=== PATIENT | male | born 1955 | race Caucasian/White ===

== ENCOUNTER 2016-07-10 12:56 | Inpatient (IN) | payer MEDICARE ==
--- NOTE | 2016-07-10 14:00 | RAD ---
HISTORY: Chest pain COMPARISONS: November 28, 2015 VIEWS:1: Single frontal portable view of the chest at 1:35 PM FINDINGS: LINES AND TUBES: None. CARDIOMEDIASTINAL SILHOUETTE: The cardiomediastinal silhouette is stable. PLEURA: The costophrenic angles are sharp. No pleural abnormalities are noted. LUNG PARENCHYMA: There is hyperinflation. ABDOMEN: The upper abdomen is clear. There is no subphrenic gas. BONES AND SOFT TISSUES: No bone or soft tissue abnormalities are noted. IMPRESSION: NO ACTIVE CARDIOPULMONARY DISEASE.
[2016-07-10 14:32] LABS: Hematocrit 45 % (42-52); Hemoglobin 14.7 g/dl (14.0-18.0); Mean Corpuscular HGB Conc 33 g/dl (31-36); Mean Corpuscular Hemoglobin 30 pg (27-31); Mean Corpuscular Volume 90 fL (80-94); Mean Platelet Volume 10 um3 (7.4-10.4); Red Blood Count 4.95 10^6/ul (4.0-5.4); Red Cell Distribution Width 15 % (10.5-15); White Blood Count 7.1 10^3/ul (3.5-10.8)
[2016-07-10 14:51] LABS: Albumin 4.1 g/dL (3.2-5.2); BUN/Creatinine Ratio 13.2 (8-20); Calcium 9.6 mg/dL (8.6-10.3); EGFR African American 63.9 (>60); EGFR Non-African American 49.7 (>60); Globulin 3.8 g/dL (2-4); Total Bilirubin 0.6 mg/dL (0.2-1.0); Total Protein 7.9 g/dL (6.4-8.9)
[2016-07-10] MEDS ORDERED: Dextrose 50% Syringe 50 ML* 25 GM/50 ML SYRINGE IV PUSH PRN (16:47)
[2016-07-10] MEDS: Enoxaparin(*) 40 MG/0.4 ML SYR SUBCUT SCH ×2 (17:47→18:25)
--- NOTE | 2016-07-10 19:26 | HP ---
ADMISSION HISTORY AND PHYSICAL: DATE OF ADMISSION: 07/11/16 PRIMARY CARE PROVIDER: Dr. Elder. ADMITTING PROVIDER: LAMONTE Bashir SUPERVISING PHYSICIAN: Dr. Conchita Crane.* (DICTATED BY LAMONTE BASHIR) CHIEF COMPLAINT: Chest pain and syncope. HISTORY OF PRESENT ILLNESS: This is a 60-year-old gentleman with a very long medical history including paroxysmal atrial fibrillation, he is not currently anticoagulated due to history of hemorrhagic CVA as well as chronic diastolic heart failure; insulin-dependent diabetes; hypertension; hyperlipidemia; BPH; coronary artery disease with prior CA; obstructive sleep apnea, noncompliant with CPAP; morbid obesity; peripheral neuropathy related to his diabetes; stage 3 chronic kidney disease, who presented to the emergency department after a syncopal episode with complaints of chest pain. The patient states that he was otherwise feeling well this morning and he was seated at a table working on a [place], when his phone rang, he got up to answer the phone. He got over to the phone and the next thing he knew, he was on the floor. He states that when he became conscious, he noted that he had significant chest pain with associated shortness of breath and was seemingly diaphoretic. Denied any associated nausea or vomiting. He took a nitroglycerin at home and reported that his chest pain improved somewhat, but he is still having 6/10 chest pain at the time of evaluation. The patient was quite clear that it seems like that the syncopal episode preceded the chest pain and he did not recall any chest pain, shortness of breath, dizziness, or other acute complaints that preceded the syncope. He states that he was otherwise feeling well in the morning, denied any recent illness. He is unsure if he ate breakfast this morning or not. When inquired about recent medication changes, he believes that his Lasix was recently increased, but probably about 4 weeks ago, and his dose of sertraline was also increased about the same time, but nothing more recent than that. The patient also has chronic lower extremity edema. He states that his legs do not necessarily look any bigger than usual. He stats that he does weigh himself on a daily basis, but his weight often fluctuates, he believes that he might be up 5 to 10 pounds, but is unable to tell me over what period of time that would be. He denies any cough, fever, abdominal pain, nausea, vomiting, diarrhea, or recent fever. No abnormal rashes. The patient was admitted approximately 6 months ago in December of 2015 with complaints of a syncopal event. At that time, he was having sinus pauses up to 2 seconds noted on telemetry. His beta-xavier dose was decreased and his diltiazem was discontinued. He states that he has had no similar symptoms since that time. The only recent acute symptom has been band-like headache for the last 2 to 3 weeks, which has been fairly consistent. PAST MEDICAL HISTORY: 1. Stage 3 chronic kidney disease. 2. Paroxysmal atrial fibrillation, without chronic anticoagulation due to history of hemorrhagic CVA. 3. Chronic diastolic heart failure with preserved ejection fraction. 4. Hypertension. 5. Hyperlipidemia. 6. Insulin-dependent diabetes. 7. History of hemorrhagic CVA. 8. BPH. 9. Coronary artery disease with prior CA - last cardiac catheterization in 2012 demonstrated 20% stenosis in the LAD and 40% stenosis in the circumflex, otherwise unremarkable. 10. Obstructive sleep apnea, noncompliant with CPAP. 11. Morbid obesity with a BMI of 49. 12. Peripheral neuropathy. PAST SURGICAL HISTORY: 1. Knee arthroscopy. 2. Vein stripping. HOME MEDICATIONS: 1. Aspirin 81 mg p.o. daily. 2. Atorvastatin 20 mg p.o. at bedtime. 3. Lasix 40 mg p.o. daily. 4. Gabapentin 200 mg p.o. twice daily. 5. Insulin degludec units subcu daily. 6. Isosorbide mononitrate 20 mg p.o. daily. 7. Tradjenta 5 mg p.o. daily. 8. Metoprolol tartrate 100 mg p.o. twice daily. 9. Sertraline 200 mg p.o. daily. 10. Flomax 0.4 mg p.o. daily. 11. Amlodipine 5 mg p.o. daily. 12. Hydralazine 25 mg p.o. t.i.d. SOCIAL HISTORY: The patient lives at home with his . Denies history of smoking or regular alcohol consumption. REVIEW OF SYSTEMS: As listed above in HPI, otherwise negative after review of all other systems. PHYSICAL EXAMINATION GENERAL: This is a morbidly obese, middle-aged gentleman, who appears slightly older than his stated age. Lying comfortably on the hospital stretcher, but otherwise in no acute distress. VITAL SIGNS: Initial vitals, temperature 98.4 degrees Fahrenheit, pulse 62 beats per minute, respiratory rate 22 per minute, oxygen saturation 97% on room air basically on 2 L via nasal cannula, and blood pressure 123/69 mmHg. HEENT: Head is normocephalic, atraumatic. Mucous membranes are mildly dry. RESPIRATORY: Lungs are clear to auscultation without wheezes, crackles, or rhonchi. CARDIOVASCULAR: Heart has regular rate and rhythm without murmurs, rubs, or gallops. ABDOMEN: Abdomen is quite large, but soft and nontender to palpation. EXTREMITIES: The patient has 2+ nonpitting edema to both lower extremities. PSYCH: The patient is alert and appropriately oriented. SKIN: There are some chronic venous stasis changes to both lower extremities. DIAGNOSTIC STUDIES/LAB DATA: CBC shows normal white blood cell count at 7100, hemoglobin of 14.7, platelet count of 198,000. INR of 0.9. Comprehensive metabolic panel shows sodium 135 mmol/L, potassium 4.0, BUN of 19, creatinine 1.44 with an estimated GFR of 49, and random glucose of 180. Lactic acid 1.3. Transaminases and total bilirubin within normal limits. Initial troponin negative. IMAGIN. Chest x-ray demonstrates no acute process, but does demonstrate cardiomegaly and perhaps some chronic interstitial edema. 2. EKG demonstrates atrial fibrillation, which is rate controlled and without acute ischemic changes. 3. I reviewed past cardiac imaging, which includes cardiac catheterization in 2012 with 20% stenosis of LAD, 40% of circumflex. 4. Echocardiogram from November of 2015 demonstrates septal hypertrophy with preserved ejection fraction of 55% to 60% without significant valvular disease. 5. Stress test from October of 2015 is read as a low risk study without significant perfusion defects. ASSESSMENT AND PLAN: This is a 60-year-old gentleman with an extensive medical history including paroxysmal atrial fibrillation; apparent hemorrhagic stroke; insulin-dependent diabetes; chronic diastolic heart failure; stage 3 chronic kidney disease; hypertension; hyperlipidemia; benign prostatic hyperplasia; coronary artery disease; obstructive sleep apnea, noncompliant with CPAP; morbid obesity; peripheral neuropathy, who presented with complaints of chest pain and syncope. 1. Chest pain - the patient is still having some active chest pain. No ischemic changes on EKG. Initial troponin negative. The patient has had recent extensive cardiac imaging. We will plan to maintain on continuous telemetry monitoring, repeat EKG in the morning, and obtain serial troponins. We will not plan to repeat any cardiac imaging at this time. 2. Syncope - etiology is not clear. We will check orthostatic vital signs. The patient denies any preceding illness. We will plan to check a BMP and again maintain on continuous telemetry monitoring. Perhaps, he is still experiencing significant pauses especially in the setting of what is suspected to be significant obstructive sleep apnea that has not currently been treated. 3. Stage 3 chronic kidney disease - creatinine appears to be near baseline. 4. Paroxysmal atrial fibrillation - the patient is currently in atrial fibrillation, but is rate controlled. We will plan to continue his current dose of metoprolol. Anticoagulation is contraindicated due to his history of hemorrhagic cerebrovascular accident. 5. Chronic diastolic heart failure without evidence of acute exacerbation. 6. History of hemorrhagic cerebrovascular accident - no acute neurologic deficits at this time. 7. Insulin-dependent diabetes - we will continue his long-acting insulin as well as mealtime coverage as needed. We will obtain hemoglobin A1c to evaluate for effectiveness of treatment. 8. Hypertension - continue home antihypertensive medication. 9. Hyperlipidemia. 10. Benign prostatic hyperplasia. 11. Coronary artery disease with complaints of chest pain, but no clinical evidence of acute coronary syndrome and essentially normal cardiac catheterization approximately 4 years ago and a normal stress test within the last 12 months. 12. Obstructive sleep apnea - noncompliant with CPAP, although the patient is willing to use CPAP machine during hospital stay. 13. Morbid obesity with a BMI of 49. 14. Peripheral neuropathy secondary to diabetes. 15. Code status - the patient is full code. 16. DVT prophylaxis will be with 30 mg of Lovenox daily, which is the renally adjusted dose. 17. Healthcare proxy is the patient's . DISPOSITION: The patient is being admitted to observation status with anticipated discharge tomorrow. LAMONTE BASHIR CC: Dr. Elder * [id number]/[facility] #: [id number] DEVIKA
[2016-07-10] MEDS: Atorvastatin* 20 MG TAB PO SCH (20:50)
[2016-07-10] MEDS: Gabapentin CAP(*) 100 MG PO SCH (20:50)
[2016-07-10] MEDS: hydrALAZINE TAB* 25 MG PO SCH (20:51)
[2016-07-10] MEDS: Metoprolol Tartrate TAB* 50 mg PO SCH (20:51)
[2016-07-10] MEDS: ISOSORBIDE MONONITRATE 20 MG PO SCH (20:53)
[2016-07-10] MEDS: Insulin GLARGINE(*) 1 UNITS UNIT SUBCUT SCH (20:55)
--- NOTE | 2016-07-10 23:32 | ED ---
Charly Daniel Benjamin, scribed for Spencer Navarrete MD on 07/10/16 at 1345 . HPI Chest Pain - HPI Summary HPI Summary: 61yo male with multiple hx of CVA and [place] arrives today by EMS. Pt fell down today around 12pm, and states that he is not sure whether he passed out or not, but then started having stabbing, burning CP after. Pt states that he has CP intermittently everyday but not like this episode. Per EMS, pt had afib readings on his EKG en route. - History of Current Complaint Time Seen by Provider: 07/10/16 13:23 Hx Obtained From: Patient, EMS Onset/Duration: Started Hours Ago, Still Present Initial Severity: Moderate - 5 Current Severity: Moderate - 5 Pain Intensity: 5 Pain Scale Used: 0-10 Numeric Chest Pain Location: Diffuse Chest Pain Radiates: No Character: Burning, Sharp/Stabbing Aggravating Factor(s): Nothing Alleviating Factor(s): Nothing Associated Signs and Symptoms: Positive: Chest Pain. Negative: Shortness of Breath - Additional Pertinent History Primary Care Physician: [id number] - Allergy/Home Medications Allergies/Adverse Reactions: Allergies Allergy/AdvReac Type Severity Reaction Status Date / Time Iodinated Diagnostic Agents Allergy See Comment Verified 11/10/15 13:38 IVP dye Allergy seizure Uncoded 11/09/15 07:50 Home Medications: Home Medications Gabapentin CAP(*) [Neurontin 100 mg CAP(*)] 200 mg PO BID 07/10/16 [History Confirmed 07/10/16] Insulin Degludec [Tresiba Flextouch] 70 unit SUBCUT BEDTIME 07/10/16 [History Confirmed 07/10/16] Isosorbide Mononitrate (NF) 20 mg PO BID 07/10/16 [History Confirmed 07/10/16] Sertraline* [Zoloft*] 200 mg PO DAILY 07/10/16 [History Confirmed 07/10/16] amLODIPine TAB* [Norvasc 5 mg TAB*] 5 mg PO DAILY 07/10/16 [History Confirmed ] hydrALAZINE TAB* [Apresoline TAB*] 25 mg PO TID 07/10/16 [History Confirmed 07/22] PMH/Surg Hx/FS Hx/Imm Hx Endocrine/Hematology History: Reports: Hx Diabetes - DM 2 Cardiovascular History: Reports: Hx Angina, Hx Congestive Heart Failure, Hx Coronary Artery Disease, Hx Embolism - PE, Hx Hypercholesterolemia - HLD, Hx Hypertension, Hx Syncope - This admission, Other Cardiovascular Problems/ Disorders - STROKE Respiratory History: Reports: Hx Sleep Apnea - current CPAP user. History: Reports: Hx Benign Prostatic Hyperplasia Musculoskeletal History: Reports: Hx Arthritis - LEFT KNEE FOR YEARS Sensory History: Denies: Hx Contacts or Glasses, Hx Hearing Aid Opthamlomology History: Denies: Hx Contacts or Glasses Neurological History: Reports: Hx Transient Ischemic Attacks (TIA) Psychiatric History: Reports: Hx Anxiety, Hx Depression - Surgical History Surgery Procedure, Year, and Place: LEFT KNEE REPLACEMENT, RIGHT KNEE ARTHRSCOPY , RIGHT LEG VEIN STRIPPING Hx Anesthesia Reactions: No Infectious Disease History: Denies: History Other Infectious Disease - Family History Known Family History: Positive: Cardiac Disease, Diabetes - Social History Occupation: Retired Lives: With Family Alcohol Use: None Substance Use Type: Reports: None Hx Tobacco Use: Yes Smoking Status (MU): Never Smoked Tobacco Have You Smoked in the Last Year: No Review of Systems Constitutional: Negative Eyes: Negative ENT: Negative Positive: Chest Pain Negative: Shortness Of Breath Gastrointestinal: Negative Negative: Abdominal Pain Genitourinary: Negative Musculoskeletal: Negative Skin: Negative Neurological: Negative Psychological: Normal All Other Systems Reviewed And Are Negative: Yes Physical Exam Triage Information Reviewed: Yes Vital Signs On Initial Exam: Initial Vitals Temp Pulse Resp BP Pulse Ox 98.4 F 64 22 123/69 97 07/10/16 13:40 07/10/16 13:40 07/10/16 13:40 07/10/16 13:40 07/10/16 13:40 Vital Signs Reviewed: Yes Appearance: Positive: Well-Appearing, Pain Distress - mild, Obese Skin: Positive: Warm, Skin Color Reflects Adequate Perfusion, Dry Head/Face: Positive: Normal Head/Face Inspection Eyes: Positive: Normal ENT: Positive: Normal ENT inspection Neck: Positive: Supple, Nontender Respiratory/Lung Sounds: Positive: Clear to Auscultation, Breath Sounds Present Cardiovascular: Positive: RRR, Other - chronic venous stasis changes Abdomen Description: Positive: Nontender, No Organomegaly, Soft Bowel Sounds: Positive: Present Musculoskeletal: Positive: Strength/ROM Intact, Other - pitting edema, bilateral Neurological: Positive: Normal, Sensory/Motor Intact, Alert, Oriented to Person Place, Time, CN Intact II-III, Reflexes Intact Psychiatric: Positive: Affect/Mood Appropriate Diagnostics - Vital Signs Vital Signs Temp Pulse Resp BP Pulse Ox 07/10/16 15:00 66 139/74 97 07/10/16 14:30 62 20 128/81 98 07/10/16 14:17 19 134/84 07/10/16 14:00 63 16 99 07/10/16 13:50 61 18 99 07/10/16 13:48 123/69 07/10/16 13:40 98.4 F 62 22 123/69 98 - Laboratory Lab Results: Lab Results 07/10/16 07/10/16 07/10/16 Range/Units 14:05 14:05 14:05 WBC 7.1 (3.5-10.8) 10^3/ul RBC 4.95 (4.0-5.4) 10^6/ul Hgb 14.7 (14.0-18.0) g/dl Hct 45 (42-52) % MCV 90 (80-94) fL MCH 30 (27-31) pg MCHC 33 (31-36) g/dl RDW 15 (10.5-15) % Plt Count 198 (150-450) 10^3/ul MPV 10 (7.4-10.4) um3 Neut % (Auto) 71.9 (38-83) % Lymph % (Auto) 15.7 L (25-47) % Crenshaw % (Auto) 9.9 H (1-9) % Eos % (Auto) 1.8 (0-6) % Baso % (Auto) 0.7 (0-2) % Absolute Neuts (auto) 5.1 (1.5-7.7) 10^3/ul Absolute Lymphs (auto) 1.1 (1.0-4.8) 10^3/ul Absolute Monos (auto) 0.7 (0-0.8) 10^3/ul Absolute Eos (auto) 0.1 (0-0.6) 10^3/ul Absolute Basos (auto) 0.1 (0-0.2) 10^3/ul Absolute Nucleated RBC 0.01 10^3/ul Nucleated RBC % 0.1 INR (Anticoag Therapy) 0.90 (0.89-1.11) Sodium 135 (133-145) mmol/L Potassium 4.0 (3.5-5.0) mmol/L Chloride 103 (101-111) mmol/L Carbon Dioxide 26 (22-32) mmol/L Anion Gap 6 (2-11) mmol/L BUN 19 (6-24) mg/dL Creatinine 1.44 H (0.67-1.17) mg/dL Est GFR ( Amer) 63.9 (>60) Est GFR (Non-Af Amer) 49.7 (>60) BUN/Creatinine Ratio 13.2 (8-20) Glucose 180 H (70-100) mg/dL Hemoglobin A1c (Less than 6.0) % Lactic Acid (0.5-2.0) mmol/L Calcium 9.6 (8.6-10.3) mg/dL Total Bilirubin 0.60 (0.2-1.0) mg/dL AST 31 (13-39) U/L ALT 25 (7-52) U/L Alkaline Phosphatase 86 (34-104) U/L Troponin I 0.00 (<0.04) ng/mL B-Natriuretic Peptide ( - 100) pg/mL Total Protein 7.9 (6.4-8.9) g/dL Albumin 4.1 (3.2-5.2) g/dL Globulin 3.8 (2-4) g/dL Albumin/Globulin Ratio 1.1 (1-3) 07/10/16 07/10/16 07/10/16 Range/Units 14:05 14:05 14:05 WBC (3.5-10.8) 10^3/ul RBC (4.0-5.4) 10^6/ul Hgb (14.0-18.0) g/dl Hct (42-52) % MCV (80-94) fL MCH (27-31) pg MCHC (31-36) g/dl RDW (10.5-15) % Plt Count (150-450) 10^3/ul MPV (7.4-10.4) um3 Neut % (Auto) (38-83) % Lymph % (Auto) (25-47) % Crenshaw % (Auto) (1-9) % Eos % (Auto) (0-6) % Baso % (Auto) (0-2) % Absolute Neuts (auto) (1.5-7.7) 10^3/ul Absolute Lymphs (auto) (1.0-4.8) 10^3/ul Absolute Monos (auto) (0-0.8) 10^3/ul Absolute Eos (auto) (0-0.6) 10^3/ul Absolute Basos (auto) (0-0.2) 10^3/ul Absolute Nucleated RBC 10^3/ul Nucleated RBC % INR (Anticoag Therapy) (0.89-1.11) Sodium (133-145) mmol/L Potassium (3.5-5.0) mmol/L Chloride (101-111) mmol/L Carbon Dioxide (22-32) mmol/L Anion Gap (2-11) mmol/L BUN (6-24) mg/dL Creatinine (0.67-1.17) mg/dL Est GFR ( Amer) (>60) Est GFR (Non-Af Amer) (>60) BUN/Creatinine Ratio (8-20) Glucose (70-100) mg/dL Hemoglobin A1c 7.0 H (Less than 6.0) % Lactic Acid 1.3 (0.5-2.0) mmol/L Calcium (8.6-10.3) mg/dL Total Bilirubin (0.2-1.0) mg/dL AST (13-39) U/L ALT (7-52) U/L Alkaline Phosphatase (34-104) U/L Troponin I (<0.04) ng/mL B-Natriuretic Peptide 188 H ( - 100) pg/mL Total Protein (6.4-8.9) g/dL Albumin (3.2-5.2) g/dL Globulin (2-4) g/dL Albumin/Globulin Ratio (1-3) Result Diagrams: 07/10/16 14:05 07/10/16 14:05 Lab Statement: Any lab studies that have been ordered have been reviewed, and results considered in the medical decision making process. - Radiology CXR Xray Interpretation: No Acute Changes Radiology Interpretation Completed By: Radiologist - EKG 1330 Cardiac Rate: NL - 65bpm EKG Rhythm: Atrial Fibrillation ST Segment: Normal Chest Pain Course/Dx - Course Course Of Treatment: Mr. Corrales had a syncopal episode and came in with CP. - Diagnoses Provider Diagnoses: Syncope and collapse, Chest pain - Provider Notifications Discussed Care Of Patient With: Dr. Ren (Hopsitalist) @15:40 - Critical Care Time Critical Care Time: 30-74 min Discharge - Discharge Plan Condition: Stable Disposition: ADMITTED TO [facility] documentation as recorded by the Charly collins Benjamin accurately reflects the service I personally performed and the decisions made by me, Spencer Navarrete MD.
[2016-07-11 06:51] LABS: BUN/Creatinine Ratio 13.1 (8-20); Calcium 9.1 mg/dL (8.6-10.3); EGFR African American 67.7 (>60); EGFR Non-African American 52.7 (>60); Potassium 4.1 mmol/L (3.5-5.0)
[2016-07-11] MEDS: Metoprolol Tartrate TAB* 50 mg PO SCH ×2 (08:17→21:55)
[2016-07-11] MEDS: hydrALAZINE TAB* 25 MG PO SCH ×3 (08:18→21:54)
[2016-07-11] MEDS: Aspirin Low Dose CHEW TAB* 81 MG PO SCH (08:18)
[2016-07-11] MEDS: Tamsulosin CAP* 0.4 MG PO SCH (08:18)
[2016-07-11] MEDS: Gabapentin CAP(*) 100 MG PO SCH ×2 (08:18→21:51)
[2016-07-11] MEDS: amLODIPine TAB* 5 MG PO SCH (08:18)
[2016-07-11] MEDS: Furosemide TAB* 40 MG PO SCH (08:18)
[2016-07-11] MEDS: Insulin LISPRO* 1 UNITS UNIT SUBCUT SCH ×3 (08:18→16:28)
[2016-07-11] MEDS: ISOSORBIDE MONONITRATE 20 MG PO SCH ×2 (08:19→21:55)
[2016-07-11] MEDS ORDERED: Sertraline* 100 MG TAB PO SCH (09:00)
--- NOTE | 2016-07-11 09:50 | PN ---
Subjective Date of Service: 07/11/16 Interval History: This is a 60 yo male who was admitted yesterday after a syncopal episode with c/ o CP. He has been monitored on tele overnight without significant events. Patient reports that he continues to have significant CP, which is TTP and provoked with movement of his L shoulder and deep inspiration. He reports that he is feeling dizzy with standing. Orthostatics and glucose WNL. Objective Active Medications: Amlodipine Besylate (Norvasc Tab*) 5 mg PO DAILY [facility] Last Admin: 07/11/16 08:18 Dose: 5 mg Aspirin (Aspirin Low Dose Tab*) 81 mg PO DAILY [facility] Last Admin: 07/11/16 08:18 Dose: 81 mg Atorvastatin Calcium (Lipitor*) 20 mg PO BEDTIME [facility] Last Admin: 07/10/16 20:50 Dose: 20 mg Dextrose (D50w Syringe 50 Ml*) 12.5 gm IV PUSH .FOR FS < 60 - SS PRN PRN Reason: FS < 60 Enoxaparin Sodium (Lovenox(*)) 40 mg SUBCUT Q24H [facility] Last Admin: 07/10/16 18:25 Dose: 40 mg Furosemide (Lasix Tab*) 40 mg PO DAILY [facility] Last Admin: 07/11/16 08:18 Dose: 40 mg Gabapentin (Neurontin Cap(*)) 200 mg PO BID [facility] Last Admin: 07/11/16 08:18 Dose: 200 mg Hydralazine HCl (Apresoline Tab*) 25 mg PO TID [facility] Last Admin: 07/11/16 08:18 Dose: 25 mg Insulin Glargine (Lantus(*)) 70 units SUBCUT BEDTIME [facility] Last Admin: 07/10/16 20:55 Dose: 70 units Insulin Human Lispro (Humalog*) 0 units SUBCUT AC [facility] PRN Reason: Protocol Last Admin: 07/11/16 08:18 Dose: 2 units Isosorbide Mononitrate (Isosorbide Mononitrate (Nf)) 20 mg PO BID [facility] PRN Reason: Protocol Last Admin: 07/11/16 08:19 Dose: 20 mg Metoprolol Tartrate (Lopressor Tab*) 100 mg PO BID [facility] Last Admin: 07/11/16 08:17 Dose: 100 mg Sertraline HCl (Zoloft*) 100 mg PO BID [facility] Tamsulosin HCl (Flomax Cap*) 0.4 mg PO QAM [facility] Last Admin: 07/11/16 08:18 Dose: 0.4 mg Vital Signs: Temp Pulse Resp BP Pulse Ox 98.1 F 65 20 152/81 96 07/11/16 07:50 07/11/16 07:50 07/11/16 08:18 07/11/16 07:50 07/11/16 07:50 Oxygen Devices in Use Now: None Appearance: Well appearing, slightly anxious, NAD Neck: NL Appearance and Movements; NL JVP Respiratory: Symmetrical Chest Expansion and Respiratory Effort, Clear to Auscultation Cardiovascular: NL Sounds; No Murmurs; No JVD, RRR Abdominal: NL Sounds; No Tenderness; No Distention Extremities: - - 2+ LE edema Skin: - - chronic venous stasis changes Neurological: Alert and Oriented x 3 Result Diagrams: 07/10/16 14:05 07/11/16 06:16 Additional Lab and Data: . Diagnostic Imaging: CXR - NAD EKG - afib Tele - rate controlled afib, occasional missed beat, no significant pause or other dysrhythmia Assess/Plan/Problems-Billing Assessment: This is a 60 yo gentleman with extensive medical history including paroxysmal afib, prior strokes including hemorrhagic type which is why he is not anticoagulated for his afib, chronic diastolic HF, IDDM, HTN, HLD, BPH, CAD with prior AMI, MIGUEL A non-compliant with CPAP, morbid obesity and diabetic neuropathy who presented after a syncopal episode with c/o CP. - Patient Problems (1) Chest pain Comment: Trop neg x 3 No change on EKG Chest TTP and pain exacerbated with movement Likely musculoskeletal, ordered rib XR (2) Syncope Comment: Unknown etiology Orthostatics WNL No hypoglycemia Now c/o dizziness with standing Plan to repeat echocardiogram tomorrow No dysrhythmia on tele Will check Ddimer and pursue VQ scan if positive d/t CKD and h/o contrast dye allergy (3) MIGUEL A (obstructive sleep apnea) Comment: Non-compliant with CPAP Refuses CPAP during hosp stay (4) Chronic diastolic (congestive) heart failure Comment: No acute exacerbation Cont home dose of Lasix (5) Atrial fibrillation Comment: Paroxysmal Rate controlled Not anticoagulated d/t h/o hemorrhagic CVA (6) CAD (coronary artery disease) Comment: cath in 2013 showed moderate disease. Trop neg x 3 No EKG changes No evidence of ACS (7) CKD stage 3 due to type 2 diabetes mellitus Comment: Stable Cr near baseline Monitor (8) DM type 2 (diabetes mellitus, type 2) Comment: IDDM HbgA1c 7.0% Good glycemic control No hypoglycemia noted (9) Dyslipidemia Comment: Cont statin (10) Morbid obesity Comment: BMI 50 (11) Full code status (12) DVT prophylaxis Comment: SQ Lovenox
--- NOTE | 2016-07-11 10:57 | RAD ---
INDICATION: Left rib pain after a fall COMPARISON: Most recent comparison chest x-rays dated July 10, 2016 TECHNIQUE: 7 views of the left ribs were obtained. FINDINGS: An external BB is noted overlying the left lateral ribs. Evaluation of the ribs is limited due to the patient's large body habitus causing poor radiographic penetration. No displaced rib fractures identified. The lungs appear grossly clear without pneumothorax. Incidentally noted is an IVC filter (probably a Cook Celect) is tilted approximately 23 degrees in the AP projection. IMPRESSION: 1. No displaced rib fractures or pneumothorax are identified on this limited radiographic series. 2. Incidentally noted is a tilted Cook Celect IVC filter that has been present since at least August 14, 2014. Advise re-evaluation of clinical necessity of this filter.
[2016-07-11] MEDS: Morphine ORAL CONCENTRATE* 5 MG/0.25 ML ORAL.SYRIN PO PRN ×2 (15:03→22:03)
--- NOTE | 2016-07-11 16:25 | PN ---
Hospitalist Progress Note 2 second pause noted on telemetry. Metoprolol decreased to 50 bid, cont telemetry monitoring
[2016-07-11] MEDS: Enoxaparin(*) 40 MG/0.4 ML SYR SUBCUT SCH (16:29)
[2016-07-11] MEDS: Atorvastatin* 20 MG TAB PO SCH (21:49)
[2016-07-11] MEDS: Insulin GLARGINE(*) 1 UNITS UNIT SUBCUT SCH (21:56)
[2016-07-11] MEDS: Sertraline* 100 MG TAB PO SCH (21:56)
[2016-07-11] MEDS: Docusate CAP* 100 MG PO SCH (22:41)
[2016-07-12] MEDS: Insulin LISPRO* 1 UNITS UNIT SUBCUT SCH ×3 (07:19→16:27)
[2016-07-12] MEDS: Aspirin Low Dose CHEW TAB* 81 MG PO SCH (07:20)
[2016-07-12] MEDS: Sertraline* 100 MG TAB PO SCH ×2 (07:20→21:10)
[2016-07-12] MEDS: Furosemide TAB* 40 MG PO SCH (07:20)
[2016-07-12] MEDS: Tamsulosin CAP* 0.4 MG PO SCH (07:20)
[2016-07-12] MEDS: Docusate CAP* 100 MG PO SCH ×2 (07:20→21:11)
[2016-07-12] MEDS: amLODIPine TAB* 5 MG PO SCH (07:21)
[2016-07-12] MEDS: hydrALAZINE TAB* 25 MG PO SCH ×3 (07:21→21:11)
[2016-07-12] MEDS: Gabapentin CAP(*) 100 MG PO SCH ×2 (07:21→21:10)
[2016-07-12] MEDS: Metoprolol Tartrate TAB* 50 mg PO SCH ×2 (07:21→21:10)
[2016-07-12] MEDS: ISOSORBIDE MONONITRATE 20 MG PO SCH ×2 (07:22→21:16)
--- NOTE | 2016-07-12 11:13 | ECHO ---
Patient: MARY RUBIN [facility] Rec#: [id number] : 1955 Date: 07/12/2016 Age: 60y Height: 180.34 cm / 71.0 in Weight: 167.83 kg / 369.9 lbs Sex: M BSA: 2.74 Room#: 438 Admit Date#: 07/11/2016 Type: Inpatient Referring: Usama Wren Reading: Buzz Mariano MD Interior [employer] Principal: Bridget RomeroRDCS,RDMS Transthoracic Echocardiogram Indication: Syncope, CP BP: 128/71 HR: 72 Rhythm: A-Fib Indications Syncope Findings History: AFIB, CVA, CHF, DM, HTN, HLD, CAD, NC, CKD Technical Comments: The study is technically limited due to patient body habitus. Completed 1055. Left Ventricle: The left ventricular chamber size is normal. Mild concentric left ventricular hypertrophy is observed.sigmoid septum. Unable to estimate left ventricular ejection fraction. Not well visualized. Suboptimal evaluation suggests overall preserved ef with relative inferobasal hypokinesis. The assessment of diastolic function is non-diagnostic. Left Atrium: The left atrium is moderate to severely dilated. Right Ventricle: The right ventricle wall thickness is mildly increased. The right ventricular cavity size is normal. The right ventricular global systolic function is mildly reduced. Right Atrium: The right atrium is mild to moderately dilated. Aortic Valve: The aortic valve is trileaflet. There is no evidence of aortic regurgitation. There is no evidence of aortic stenosis. Mitral Valve: The mitral valve leaflets do not appear thickened. There is a trace of mitral regurgitation. There is no evidence of mitral stenosis. Tricuspid Valve: The tricuspid valve leaflets are normal. There is trace to mild tricuspid regurgitation. No pulmonary hypertension is noted. Pulmonic Valve: There is no evidence of pulmonic valve thickening. There is no evidence of pulmonic regurgitation. Pericardium: There is no significant pericardial effusion. Aorta: There is borderline dilatation of the ascending aorta. The aortic arch is not well visualized. There is no dilation of the aortic root. Pulmonary Artery: The main pulmonary artery is not well visualized. Venous: The inferior vena cava is not visualized. Conclusions Mild concentric left ventricular hypertrophy is observed. Unable to estimate left ventricular ejection fraction. Not well visualized. Suboptimal evaluation suggests overall preserved EF with relative inferobasal hypokinesis. The left atrium is moderate to severely dilated. The right ventricle wall thickness is mildly increased. The right ventricular global systolic function is mildly reduced. The right atrium is mild to moderately dilated. There is a trace of mitral regurgitation. There is trace to mild tricuspid regurgitation. There is borderline dilatation of the ascending aorta. Similar to 11/2015 except that the ef was reported as 55-60% Consider repeat evaluation with contrast enhancement to better define the EF. Measurements Name Value Normal Range RVIDd (AP) 2D 2.6 cm (0.9 - 2.6) RAd ISD 4CH 6.2 cm (3.4 - 4.9) RA (A4C)W 4.4 cm (2.9 - 4.6) Aortic Annulus 2.4 cm (1.4 - 2.6) Ao root diameter (2D) 3.3 cm (2.1 - 3.5) Ascending Ao 3.5 cm (2.1 - 3.4) LA dimension (AP) 2D 6.5 cm (2.3 - 3.8) LAd ISD 4CH 7 cm (2.9 - 5.3) LA ISD 4CH W 5.8 cm (2.5 - 4.5) Name Value Normal Range LA ESV SP 4CH (A/L) 159.83 ml - LA ESV SP 2CH (A/L) 77.79 ml - LA ESV BP (A/L) 119 ml - LA ESV BP (A/L) index 43.4 ml/m2 - LA ESV SP 4CH (MOD) 147.87 ml - LA ESV SP 2CH (MOD) 71.36 ml - Name Value Normal Range MV E-wave Vmax 0.9 m/sec - MV deceleration time 151 msec - LV lateral e' Vmax 0.1 m/sec - LV E:e' lateral ratio 9 ratio - Name Value Normal Range AV Vmax 1.1 m/sec - AV peak gradient 5 mmHg - LVOT Vmax 1 m/sec - LVOT peak gradient 4 mmHg - Name Value Normal Range TR Vmax 2.8 m/sec - TR peak gradient 31 mmHg - RAP 3 mmHg - RVSP 34 mmHg - Name Value Normal Range PV Vmax 0.9 m/sec - PV peak gradient 3.2 mmHg -
[2016-07-12] MEDS: Acetaminophen TAB* 325 MG PO PRN (13:29)
--- NOTE | 2016-07-12 13:39 | RAD ---
INDICATION: Syncope and headache COMPARISON: Similar CT of the brain dated December 17, 2015 TECHNIQUE: Contiguous axial sections of the brain were obtained from the skull base to the vertex without contrast. FINDINGS: Evaluation is limited by streak artifact created by patient motion. The ventricles, cisterns and sulci symmetric and diffuse involutional changes are similar in appearance to the previous brain CT. There is periventricular and subcortical white matter hypoattenuation, including a stable focus in the right basal ganglia most consistent with chronic microvascular disease.. The wolf-white matter differentiation is adequately maintained and there is no sulcal effacement. No significant focal abnormality or mass effect is present. There is no evidence for intracranial hemorrhage. No significant focal osseous abnormality is present. The visualized portion of the paranasal sinuses and mastoid air cells appear clear. IMPRESSION: Limited evaluation due to streak artifact likely created by motion during image acquisition. The chronic findings described in body the report have not changed significantly since the December 17, 2015 CT of the brain.
--- NOTE | 2016-07-12 16:06 | PN ---
Subjective Date of Service: 07/12/16 Interval History: Patient reports that he is persistently dizzy with some SOB. He also reports a persistent IQBAL. Of note, a CT of the head was not performed in the ER. Patient had 2 2-sec pauses yesterday on tele at ~11a. Metoprolol dose was decreased at that time to 50 bid and he has been in rate controlled afib without additional pauses since. Objective Active Medications: Acetaminophen (Tylenol Tab*) 650 mg PO Q6H PRN PRN Reason: pain/fever Last Admin: 07/12/16 13:29 Dose: 650 mg Amlodipine Besylate (Norvasc Tab*) 5 mg PO DAILY [facility] Last Admin: 07/12/16 07:21 Dose: 5 mg Aspirin (Aspirin Low Dose Tab*) 81 mg PO DAILY [facility] Last Admin: 07/12/16 07:20 Dose: 81 mg Atorvastatin Calcium (Lipitor*) 20 mg PO BEDTIME [facility] Last Admin: 07/11/16 21:49 Dose: 20 mg Dextrose (D50w Syringe 50 Ml*) 12.5 gm IV PUSH .FOR FS < 60 - SS PRN PRN Reason: FS < 60 Docusate Sodium (Colace Cap*) 100 mg PO BID [facility] Last Admin: 07/12/16 07:20 Dose: 100 mg Enoxaparin Sodium (Lovenox(*)) 40 mg SUBCUT Q24H [facility] Last Admin: 07/11/16 16:29 Dose: 40 mg Furosemide (Lasix Tab*) 40 mg PO DAILY [facility] Last Admin: 07/12/16 07:20 Dose: 40 mg Gabapentin (Neurontin Cap(*)) 200 mg PO BID [facility] Last Admin: 07/12/16 07:21 Dose: 200 mg Hydralazine HCl (Apresoline Tab*) 25 mg PO TID [facility] Last Admin: 07/12/16 13:18 Dose: 25 mg Insulin Glargine (Lantus(*)) 70 units SUBCUT BEDTIME [facility] Last Admin: 07/11/16 21:56 Dose: 70 units Insulin Human Lispro (Humalog*) 0 units SUBCUT AC [facility] PRN Reason: Protocol Last Admin: 07/12/16 11:26 Dose: 3 units Isosorbide Mononitrate (Isosorbide Mononitrate (Nf)) 20 mg PO BID [facility] PRN Reason: Protocol Last Admin: 07/12/16 07:22 Dose: 20 mg Metoprolol Tartrate (Lopressor Tab*) 50 mg PO BID [facility] Last Admin: 07/12/16 07:21 Dose: 50 mg Morphine Sulfate (Morphine Oral Concentrate*) 10 mg PO Q4H PRN PRN Reason: PAIN Last Admin: 07/11/16 22:03 Dose: 10 mg Sertraline HCl (Zoloft*) 100 mg PO BID [facility] Last Admin: 07/12/16 07:20 Dose: 100 mg Tamsulosin HCl (Flomax Cap*) 0.4 mg PO QAM [facility] Last Admin: 07/12/16 07:20 Dose: 0.4 mg Vital Signs: Temp Pulse Resp BP Pulse Ox 99.0 F 69 18 129/85 95 07/12/16 12:01 07/12/16 12:01 07/12/16 12:01 07/12/16 12:01 07/12/16 12:01 Oxygen Devices in Use Now: None Appearance: Mildly anxious appearing but otherwise well middle aged obese gentleman in NAD Respiratory: Symmetrical Chest Expansion and Respiratory Effort, Clear to Auscultation Cardiovascular: NL Sounds; No Murmurs; No JVD, RRR Abdominal: NL Sounds; No Tenderness; No Distention Extremities: - - stable LE edema 2+ bilaterally Skin: No Rash or Ulcers Neurological: Alert and Oriented x 3 Result Diagrams: 07/10/16 14:05 07/11/16 06:16 Additional Lab and Data: . Diagnostic Imaging: CXR - NAD EKG - afib Tele - rate controlled afib, occasional missed beat, no significant pause or other dysrhythmia Echo - LVEF 55-60%, nl RV fxn, pul pressure not measured, no sig valvular abnl Assess/Plan/Problems-Billing Assessment: This is a 60 yo gentleman with extensive medical history including paroxysmal afib, prior strokes including hemorrhagic type which is why he is not anticoagulated for his afib, chronic diastolic HF, IDDM, HTN, HLD, BPH, CAD with prior AMI, MIGUEL A non-compliant with CPAP, morbid obesity and diabetic neuropathy who presented after a syncopal episode with c/o CP. - Patient Problems (1) Chest pain Comment: Trop neg x 3 No change on EKG Chest TTP and pain exacerbated with movement Likely musculoskeletal, rib XR demonstrates no fx Noted elevated D-dimer, he has a IV contrast allergy with unknown reaction and CKD making CTA a poor option VQ is ordered for Wednesday am, IVC filter noted on CXR, unsure what the history is with that Echo WNL (2) Syncope Comment: Unknown etiology, likely cardiac Sinus pause noted on tele yesterday, no pause since dose of metoprolol has been decrease Orthostatics WNL No hypoglycemia Now with persistent dizziness Echo WNL VQ scan pending (3) MIGUEL A (obstructive sleep apnea) Comment: Non-compliant with CPAP Refuses CPAP during hosp stay (4) Headache Comment: CT brain ordered as this wasn't done at admission Perhaps d/t untreated MIGUEL A APAP prn (5) Chronic diastolic (congestive) heart failure Comment: No acute exacerbation Cont home dose of Lasix (6) Atrial fibrillation Comment: Paroxysmal Rate controlled Not anticoagulated d/t h/o hemorrhagic CVA (7) CAD (coronary artery disease) Comment: cath in 2013 showed moderate disease. Trop neg x 3 No EKG changes No evidence of ACS (8) CKD stage 3 due to type 2 diabetes mellitus Comment: Stable Cr near baseline Monitor (9) DM type 2 (diabetes mellitus, type 2) Comment: IDDM HbgA1c 7.0% Good glycemic control No hypoglycemia noted (10) Dyslipidemia Comment: Cont statin (11) Morbid obesity Comment: BMI 50 (12) Full code status (13) DVT prophylaxis Comment: SQ Lovenox Status and Disposition: Inpatient. Pend VQ scan, possible dc tomorrow following VQ.
[2016-07-12] MEDS: Enoxaparin(*) 40 MG/0.4 ML SYR SUBCUT SCH (16:09)
--- NOTE | 2016-07-12 18:38 | PN ---
Hospitalist Progress Note Patient experienced 9 beat run of Vtach. Asx. He will require cardiology eval in am for possible ICD/pacer with his recent sinus pauses on higher dose BB and now non-sustained Vtach as the dose is lowered.
[2016-07-12] MEDS: Insulin GLARGINE(*) 1 UNITS UNIT SUBCUT SCH (21:11)
[2016-07-12] MEDS: Atorvastatin* 20 MG TAB PO SCH (21:11)
[2016-07-13] MEDS: Insulin LISPRO* 1 UNITS UNIT SUBCUT SCH ×3 (07:35→16:43)
[2016-07-13] MEDS: Furosemide TAB* 40 MG PO SCH (09:42)
[2016-07-13] MEDS: Aspirin Low Dose CHEW TAB* 81 MG PO SCH (09:42)
[2016-07-13] MEDS: Docusate CAP* 100 MG PO SCH ×2 (09:42→21:46)
[2016-07-13] MEDS: Tamsulosin CAP* 0.4 MG PO SCH (09:42)
[2016-07-13] MEDS: Metoprolol Tartrate TAB* 50 mg PO SCH (09:43)
[2016-07-13] MEDS: Sertraline* 100 MG TAB PO SCH ×2 (09:43→21:46)
[2016-07-13] MEDS: Gabapentin CAP(*) 100 MG PO SCH ×2 (09:43→21:46)
[2016-07-13] MEDS: ISOSORBIDE MONONITRATE 20 MG PO SCH ×2 (09:44→21:45)
[2016-07-13] MEDS: amLODIPine TAB* 5 MG PO SCH (09:44)
[2016-07-13] MEDS: hydrALAZINE TAB* 25 MG PO SCH ×3 (09:44→21:46)
--- NOTE | 2016-07-13 12:48 | RAD ---
Indication: Chest pain, syncope, elevated d-dimer. Contrast allergy. Chronic kidney disease. Comparison: July 10, 2016 chest radiograph and December 02, [address] Technique: Following administration of 11.000 mCi xenon-133 by inhalation anterior and posterior ventilation images were obtained. Following the administration of 6.500 mCi of Tc-99m macroaggregated albumin, perfusion images were obtained in multiple projections. Report: The ventilation pattern is uniform with no evidence of air trapping. Negative for segmental or subsegmental perfusion defects. IMPRESSION: No evidence for pulmonary embolism.
--- NOTE | 2016-07-13 14:04 | RAD ---
Indication: Syncope. Chest pain. Comparison: July 11 and July 20 chest radiographs. December 02, [address] Technique: Dual energy PA chest. Report: Obesity limits image quality. Mild prominence of the interstitial markings without change. Based on correlation with prior exams the lung volumes appear elevated. No focal pulmonary lesion, pleural effusion, pneumothorax. Upper normal heart size. Unremarkable central pulmonary vasculature and mediastinal contours. IMPRESSION: Stigmata of probable chronic obstructive pulmonary disease. Upper normal heart size. No acute cardiopulmonary process evident.
--- NOTE | 2016-07-13 15:01 | PN ---
Subjective Date of Service: 07/13/16 Interval History: Patient seen and examined at bedside. Patient reports shortness of breath at rest and with exertion, this is not new. Denies fever, N/V/D. Pt states that he has a sternal chest discomfort that radiates to his left shoulder (this pain is reproducible with palpation). Pt also reports chills. Pt states that he continues to have dizziness when ambulating, he reports taking his Flomax at bedtime at home. Tele: Afib, rate 60-90's. Pt noted to have less than 2 second pauses and a 8 run beat on non-sustained v tach last evening. Family History: Unchanged from Admission Social History: Unchanged from Admission Past Medical History: Unchanged from Admission Objective Active Medications: Acetaminophen (Tylenol Tab*) 650 mg PO Q6H PRN Reason: pain/fever Amlodipine Besylate (Norvasc Tab*) 5 mg PO DAILY [facility] Aspirin (Aspirin Low Dose Tab*) 81 mg PO DAILY [facility] Atorvastatin Calcium (Lipitor*) 20 mg PO BEDTIME [facility] Dextrose (D50w Syringe 50 Ml*) 12.5 gm IV PUSH .FOR FS < 60 - SS PRN Reason: FS < 60 Docusate Sodium (Colace Cap*) 100 mg PO BID [facility] Enoxaparin Sodium (Lovenox(*)) 40 mg SUBCUT Q24H [facility] Furosemide (Lasix Tab*) 40 mg PO DAILY [facility] Gabapentin (Neurontin Cap(*)) 200 mg PO BID [facility] Hydralazine HCl (Apresoline Tab*) 25 mg PO TID [facility] Insulin Glargine (Lantus(*)) 70 units SUBCUT BEDTIME [facility] Insulin Human Lispro (Humalog*) 0 units SUBCUT AC [facility] Reason: Protocol Isosorbide Mononitrate (Isosorbide Mononitrate (Nf)) 20 mg PO BID [facility] Reason: Protocol Metoprolol Tartrate (Lopressor Tab*) 50 mg PO BID [facility] Morphine Sulfate (Morphine Oral Concentrate*) 10 mg PO Q4H PRN Reason: PAIN Sertraline HCl (Zoloft*) 100 mg PO BID [facility] Tamsulosin HCl (Flomax Cap*) 0.4 mg PO QAM [facility] Vital Signs 07/12/16 07/12/16 07/12/16 15:40 19:27 20:00 Temperature 98.3 F 97.9 F Pulse Rate 72 78 Respiratory 18 18 20 Rate Blood Pressure 114/70 136/68 (mmHg) O2 Sat by Pulse 95 94 Oximetry 07/12/16 07/12/16 07/12/16 21:10 23:10 23:55 Temperature 98.0 F Pulse Rate 82 Respiratory 16 16 20 Rate Blood Pressure 119/55 (mmHg) O2 Sat by Pulse 95 Oximetry 07/13/16 07/13/16 07/13/16 03:26 07:44 08:08 Temperature 98.3 F 97.0 F Pulse Rate 74 56 Respiratory 20 18 16 Rate Blood Pressure 148/74 144/82 (mmHg) O2 Sat by Pulse 92 98 Oximetry 07/13/16 07/13/16 07/13/16 09:43 11:43 12:13 Temperature Pulse Rate 77 Respiratory 16 18 18 Rate Blood Pressure 142/78 (mmHg) O2 Sat by Pulse 96 Oximetry 07/13/16 12:20 Temperature 99.1 F Pulse Rate Respiratory Rate Blood Pressure (mmHg) O2 Sat by Pulse Oximetry Oxygen Devices in Use Now: None Appearance: NAD, sitting up in a chair Eyes: No Scleral Icterus, PERRLA Ears/Nose/Mouth/Throat: Mucous Membranes Moist Respiratory: Symmetrical Chest Expansion and Respiratory Effort, Clear to Auscultation Cardiovascular: NL Sounds; No Murmurs; No JVD, - - Heart rate irregular Abdominal: NL Sounds; No Tenderness; No Distention Extremities: - - 2+ bilateral LE edema Skin: No Rash or Ulcers Neurological: Alert and Oriented x 3, NL Muscle Strength and Tone Lines/Tubes/Other Access: Clean, Dry and Intact Peripheral IV - site benign Nutrition: Taking PO's Result Diagrams: 07/10/16 14:05 07/11/16 06:16 Additional Lab and Data: . Diagnostic Imaging: CXR - NAD EKG - afib Tele - rate controlled afib, occasional missed beat, no significant pause or other dysrhythmia Echo - inferobasal hypokinesis LVEF 55-60%, nl RV fxn, pul pressure not measured , no sig valvular abnl Brain CT - limited evaluation d/t streak artifact likely caused by motion. Chronic changes, similar to previous study VQ Scan - no evidence for PE CXR 07/13 - Stigmata of probable COPD, NAD Assess/Plan/Problems-Billing Assessment: Mr. Corrales is a 60 yo gentleman with extensive medical history including paroxysmal afib, prior strokes including hemorrhagic type which is why he is not anticoagulated for his afib, chronic diastolic HF, IDDM, HTN, HLD, BPH, CAD with prior AMI, MIGUEL A non-compliant with CPAP, morbid obesity and diabetic neuropathy who presented after a syncopal episode with c/o CP. - Patient Problems (1) Chest pain Code(s): R07.9 - CHEST PAIN, UNSPECIFIED SNOMED Code(s): 00762187 Comment: - Trop neg x 3 - No change on EKG - Chest TTP and pain exacerbated with movement - Likely musculoskeletal, rib XR demonstrates no fx - Noted elevated D-dimer, he has a IV contrast allergy with unknown reaction and CKD making CTA a poor option - VQ scan showes no signs of IA, IVC filter noted on CXR - Echo - focal wall motion abnormality (2) Syncope Code(s): R55 - SYNCOPE AND COLLAPSE SNOMED Code(s): 197845317 Comment: - Unknown etiology, likely cardiac - Occasional sinus pauses noted on tele - Orthostatics WNL - No hypoglycemia - Now with persistent dizziness, ? if caused by taking Flomax in the morning ( Pt takes at bedtime at home) - Echo WNL - VQ scan - no PE (3) MIGUEL A (obstructive sleep apnea) Code(s): G47.33 - OBSTRUCTIVE SLEEP APNEA (ADULT) (PEDIATRIC) SNOMED Code(s): 97247092 Comment: - Non-compliant with CPAP - Refuses CPAP during hospital stay (4) Headache Code(s): R51 - HEADACHE SNOMED Code(s): 51274136 Comment: - CT brain - no aute findings - Perhaps d/t untreated MIGUEL A - APAP prn (5) Chronic diastolic (congestive) heart failure Code(s): I50.32 - CHRONIC DIASTOLIC (CONGESTIVE) HEART FAILURE SNOMED Code(s) : 366625658 Comment: - No acute exacerbation - Continue home dose of Lasix (6) Atrial fibrillation Code(s): I48.91 - UNSPECIFIED ATRIAL FIBRILLATION SNOMED Code(s): 83037736 Comment: - Paroxysmal - Rate controlled - Not anticoagulated d/t h/o hemorrhagic CVA (7) CAD (coronary artery disease) Code(s): I25.10 - ATHSCL HEART DISEASE OF [place] CORONARY ARTERY W/O ANG PCTRS SNOMED Code(s): 74616866 Comment: - Cath in 2014 showed moderate disease. - Trop neg x 3 - No EKG changes - No evidence of ACS - Continue ASA, beta-xavier and statin (8) CKD stage 3 due to type 2 diabetes mellitus Code(s): E11.22 - TYPE 2 DIABETES MELLITUS W DIABETIC CHRONIC KIDNEY DISEASE; N18.3 - CHRONIC KIDNEY DISEASE, STAGE 3 (MODERATE) SNOMED Code(s): 491618575059 Comment: - Stable - Creatinine near baseline - Monitor (9) DM type 2 (diabetes mellitus, type 2) Comment: - IDDM - HbgA1c 7.0% - Good glycemic control - No hypoglycemia noted - Continue Lantus and Lispro SS (10) Dyslipidemia Code(s): E78.5 - HYPERLIPIDEMIA, UNSPECIFIED SNOMED Code(s): 650770034 Comment: - Continue statin (11) Morbid obesity Code(s): E66.01 - MORBID (SEVERE) OBESITY DUE TO EXCESS CALORIES SNOMED Code(s ): 362055875 Comment: - BMI 50 (12) DVT prophylaxis Code(s): [id number] - SNOMED Code(s): 759370553 Comment: - Heparin SQ (13) Full code status Code(s): Z78.9 - OTHER SPECIFIED HEALTH STATUS SNOMED Code(s): 883767378 Status and Disposition: Inpatient. Discharge to home when medically stable.
[2016-07-13] MEDS: Enoxaparin(*) 40 MG/0.4 ML SYR SUBCUT SCH (16:43)
[2016-07-13] MEDS: Atorvastatin* 20 MG TAB PO SCH (21:45)
[2016-07-13] MEDS: Metoprolol Tartrate TAB* 100 MG TAB PO SCH (21:45)
[2016-07-13] MEDS: Insulin GLARGINE(*) 1 UNITS UNIT SUBCUT SCH (21:45)
[2016-07-14] MEDS: Morphine ORAL CONCENTRATE* 5 MG/0.25 ML ORAL.SYRIN PO PRN (04:36)
[2016-07-14] MEDS: Insulin LISPRO* 1 UNITS UNIT SUBCUT SCH ×2 (07:55→12:40)
[2016-07-14] MEDS: Furosemide TAB* 40 MG PO SCH (09:21)
[2016-07-14] MEDS: Aspirin Low Dose CHEW TAB* 81 MG PO SCH (09:22)
[2016-07-14] MEDS: amLODIPine TAB* 5 MG PO SCH (09:22)
[2016-07-14] MEDS: Gabapentin CAP(*) 100 MG PO SCH (09:22)
[2016-07-14] MEDS: Docusate CAP* 100 MG PO SCH (09:23)
[2016-07-14] MEDS: Metoprolol Tartrate TAB* 100 MG TAB PO SCH (09:23)
[2016-07-14] MEDS: hydrALAZINE TAB* 25 MG PO SCH ×2 (09:23→12:40)
[2016-07-14] MEDS: Sertraline* 100 MG TAB PO SCH (09:23)
[2016-07-14] MEDS: ISOSORBIDE MONONITRATE 20 MG PO SCH (09:25)
--- NOTE | 2016-07-14 10:01 | PN ---
Subjective Date of Service: 07/14/16 Interval History: Patient seen and examined at bedside. Pt states that he had 8/10 chest pain overnight that he describes as burning and sharp, that radiated to his left should. He denies any other symptoms such as nausea or diaphoresis. He reports shortness of breath at baseline. Pt also reports continued dizziness when getting up from a laying position. Denies fever, chills, abdominal pain, N/V/D. Tele: Afib, rate 60's. Pt continues to have occasional pauses less than 2 seconds. Family History: Unchanged from Admission Social History: Unchanged from Admission Past Medical History: Unchanged from Admission Objective Active Medications: Acetaminophen (Tylenol Tab*) 650 mg PO Q6H PRN Reason: pain/fever Amlodipine Besylate (Norvasc Tab*) 5 mg PO DAILY [facility] Aspirin (Aspirin Low Dose Tab*) 81 mg PO DAILY [facility] Atorvastatin Calcium (Lipitor*) 20 mg PO BEDTIME [facility] Dextrose (D50w Syringe 50 Ml*) 12.5 gm IV PUSH .FOR FS < 60 - SS PRN Reason: FS < 60 Docusate Sodium (Colace Cap*) 100 mg PO BID [facility] Enoxaparin Sodium (Lovenox(*)) 40 mg SUBCUT Q24H [facility] Furosemide (Lasix Tab*) 40 mg PO DAILY [facility] Gabapentin (Neurontin Cap(*)) 200 mg PO BID [facility] Hydralazine HCl (Apresoline Tab*) 25 mg PO TID [facility] Insulin Glargine (Lantus(*)) 70 units SUBCUT BEDTIME [facility] Insulin Human Lispro (Humalog*) 0 units SUBCUT AC [facility] Reason: Protocol Isosorbide Mononitrate (Isosorbide Mononitrate (Nf)) 20 mg PO BID [facility] Metoprolol Tartrate (Lopressor Tab*) 100 mg PO BID [facility] Morphine Sulfate (Morphine Oral Concentrate*) 10 mg PO Q4H PRN Reason: PAIN Sertraline HCl (Zoloft*) 100 mg PO BID [facility] Tamsulosin HCl (Flomax Cap*) 0.4 mg PO QPM [facility] Vital Signs 07/13/16 07/13/16 07/13/16 11:43 12:13 12:20 Temperature 99.1 F Pulse Rate 77 Respiratory 18 18 Rate Blood Pressure 142/78 (mmHg) O2 Sat by Pulse 96 Oximetry 0507/13/16 07/13/16 15:21 19:45 20:00 Temperature 98.3 F 98.5 F Pulse Rate 77 71 Respiratory 18 18 16 Rate Blood Pressure 148/74 137/62 (mmHg) O2 Sat by Pulse 94 97 Oximetry 07/13/16 07/13/16 07/13/16 21:46 23:32 23:46 Temperature 98.2 F Pulse Rate 65 Respiratory 16 16 16 Rate Blood Pressure 134/72 (mmHg) O2 Sat by Pulse 96 Oximetry 07/14/16 07/14/16 07/14/16 04:19 04:36 06:36 Temperature 97.7 F Pulse Rate 66 Respiratory 20 20 16 Rate Blood Pressure 132/80 (mmHg) O2 Sat by Pulse 94 Oximetry 07/14/16 07/14/16 07/14/16 07:27 07:55 09:22 Temperature 97.8 F Pulse Rate 71 Respiratory 16 18 18 Rate Blood Pressure 129/77 (mmHg) O2 Sat by Pulse 94 Oximetry Oxygen Devices in Use Now: None Appearance: NAD, sitting up in a chair Eyes: No Scleral Icterus, PERRLA Ears/Nose/Mouth/Throat: Mucous Membranes Moist Respiratory: Symmetrical Chest Expansion and Respiratory Effort, Clear to Auscultation - , diminished Cardiovascular: NL Sounds; No Murmurs; No JVD, - - Heart rate irregular Abdominal: - - Bowel sounds present, epigastric tenderness. Extremities: - - 2+ bilateral LE edema Neurological: Alert and Oriented x 3, NL Muscle Strength and Tone Lines/Tubes/Other Access: Clean, Dry and Intact Peripheral IV - site benign Nutrition: Taking PO's Result Diagrams: 07/10/16 14:05 07/11/16 06:16 Additional Lab and Data: . Diagnostic Imaging: CXR - NAD EKG - afib Tele - rate controlled afib, occasional missed beat, no significant pause or other dysrhythmia Echo - inferobasal hypokinesis LVEF 55-60%, nl RV fxn, pul pressure not measured , no sig valvular abnl Brain CT - limited evaluation d/t streak artifact likely caused by motion. Chronic changes, similar to previous study VQ Scan - no evidence for PE CXR 07/13 - Stigmata of probable COPD, NAD Assess/Plan/Problems-Billing Assessment: Mr. Corrales is a 60 yo gentleman with extensive medical history including paroxysmal afib, prior strokes including hemorrhagic type which is why he is not anticoagulated for his afib, chronic diastolic HF, IDDM, HTN, HLD, BPH, CAD with prior AMI, MIGUEL A non-compliant with CPAP, morbid obesity and diabetic neuropathy who presented after a syncopal episode with c/o CP. - Patient Problems (1) Chest pain Code(s): R07.9 - CHEST PAIN, UNSPECIFIED SNOMED Code(s): 42268215 Comment: - Trop neg x 3 - No change on EKG - Chest TTP and pain exacerbated with movement - Likely musculoskeletal, rib XR demonstrates no fx - Noted elevated D-dimer, he has a IV contrast allergy with unknown reaction and CKD making CTA a poor option - VQ scan showes no signs of AK, IVC filter noted on CXR - Echo - focal wall motion abnormality (2) Syncope Code(s): R55 - SYNCOPE AND COLLAPSE SNOMED Code(s): 722241308 Comment: - Unknown etiology, likely cardiac - Occasional sinus pauses noted on tele - Orthostatics WNL - No hypoglycemia - Now with persistent dizziness, ? if caused by taking Flomax in the morning ( Pt takes at bedtime at home) - Echo WNL - VQ scan - no PE (3) MIGUEL A (obstructive sleep apnea) Code(s): G47.33 - OBSTRUCTIVE SLEEP APNEA (ADULT) (PEDIATRIC) SNOMED Code(s): 35219400 Comment: - Non-compliant with CPAP - Refuses CPAP during hospital stay (4) Headache Code(s): R51 - HEADACHE SNOMED Code(s): 70835435 Comment: - CT brain - no aute findings - Perhaps d/t untreated MIGUEL A - APAP prn (5) Chronic diastolic (congestive) heart failure Code(s): I50.32 - CHRONIC DIASTOLIC (CONGESTIVE) HEART FAILURE SNOMED Code(s) : 306728292 Comment: - No acute exacerbation - Continue home dose of Lasix (6) Atrial fibrillation Code(s): I48.91 - UNSPECIFIED ATRIAL FIBRILLATION SNOMED Code(s): 31336235 Comment: - Paroxysmal - Rate controlled - Not anticoagulated d/t h/o hemorrhagic CVA (7) CAD (coronary artery disease) Code(s): I25.10 - ATHSCL HEART DISEASE OF [place] CORONARY ARTERY W/O ANG PCTRS SNOMED Code(s): 14156270 Comment: - Cath in 2014 showed moderate disease. - Trop neg x 3 - No EKG changes - No evidence of ACS - Continue ASA, beta-xavier and statin (8) CKD stage 3 due to type 2 diabetes mellitus Code(s): E11.22 - TYPE 2 DIABETES MELLITUS W DIABETIC CHRONIC KIDNEY DISEASE; N18.3 - CHRONIC KIDNEY DISEASE, STAGE 3 (MODERATE) SNOMED Code(s): 548641573309 Comment: - Stable - Creatinine near baseline - Monitor (9) DM type 2 (diabetes mellitus, type 2) Comment: - IDDM - HbgA1c 7.0% - Good glycemic control - No hypoglycemia noted - Continue Lantus and Lispro SS (10) Dyslipidemia Code(s): E78.5 - HYPERLIPIDEMIA, UNSPECIFIED SNOMED Code(s): 822186792 Comment: - Continue statin (11) Morbid obesity Code(s): E66.01 - MORBID (SEVERE) OBESITY DUE TO EXCESS CALORIES SNOMED Code(s ): 637774633 Comment: - BMI 50 (12) DVT prophylaxis Code(s): QOH5259 - SNOMED Code(s): 495736404 Comment: - Heparin SQ (13) Full code status Code(s): Z78.9 - OTHER SPECIFIED HEALTH STATUS SNOMED Code(s): 983469711 Status and Disposition: Inpatient. Discharge to home when medically stable, possibly later today or in the morning.
[2016-07-14 12:39] VITALS: BP 143/64
[2016-07-14] MEDS: Acetaminophen TAB* 325 MG PO PRN (12:39)
[2016-07-14] MEDS ORDERED: Tamsulosin CAP* 0.4 MG PO SCH (18:00)
--- NOTE | 2016-07-14 21:06 | CONS ---
CARDIOLOGY CONSULTATION: DATE OF CONSULT: 07/14/16 INDICATION FOR CONSULT: Chest pain, atrial fibrillation. HISTORY OF PRESENT ILLNESS: The patient is a 60-year-old gentleman with a history of non-cortical coronary artery disease, chronic atrial fibrillation, sleep apnea who came to the emergency room with chest pain. The patient states that he answered the phone in the morning and got sudden onset of chest pain with diaphoresis. The patient also reports that he had a syncopal episode earlier that day. The patient does have a history of these syncopal episodes, they are thought to be due to change in position, not due to his arrhythmias. The patient has chronic lower extremity edema, which has not changed in the last couple of weeks. He denies any other chest pain. The patient was admitted to the hospital and ruled out for myocardial infarction. His troponin levels were 0. His telemetry showed chronic atrial fibrillation with occasional bradycardia. However, when his beta- blockers were reduced, he had runs of nonsustained ventricular tachycardia. This pattern has been seen with previous admissions to the hospital. The patient had a similar presentation in 2012 where he had nonsustained ventricular tachycardia when his beta-blockers were held. At that time, a cardiac catheterization showed non- cortical coronary artery disease. The patient has a history of hemorrhagic CVA. He is not on anticoagulation. PAST MEDICAL HISTORY: Significant for chronic atrial fibrillation, kidney disease, diastolic heart failure, hypertension, hyperlipidemia, diabetes. Non- cortical coronary artery disease, sleep apnea, obesity, and neuropathy. The patient is not on anticoagulation, because of history of hemorrhagic CVA. OUTPATIENT MEDICATIONS: 1. Aspirin 81 mg a day. 2. Atorvastatin 20 mg a day. 3. Lasix 20 mg a day. 4. Gabapentin 200 mg b.i.d. 5. Insulin as directed. 6. Isosorbide 20 mg a day. 7. 5 mg a day. 8. Metoprolol tartrate 100 mg b.i.d. 9. Hydralazine 25 mg 3 times a day. 10. Amlodipine 5 mg a day. 11. Flomax 0.4 mg a day. ALLERGIES: IV DYE. SOCIAL HISTORY: He lives at [facility] with his . He denies tobacco or alcohol use. REVIEW OF SYSTEMS: Unremarkable. PHYSICAL EXAM: Height is 6 feet, weight 371 pounds. Temperature 97.8, heart rate is 70, blood pressure 129/77, respiratory rate is 16, oxygen saturation 94 % on room air. Sclerae anicteric. Oropharynx is pink without erythema. Carotids are 2+ without bruits. JVD is normal. Thyroid is normal. Cardiac exam: S1 and S2 irregular. No murmurs, rubs, or gallops. Lungs are clear to auscultation, although there are decreased breath sounds. There is no dullness or percussion. Abdomen is obese, soft, nontender, and nondistended with normoactive bowel sounds. Extremities show 1+ both pitting and nonpitting edema. There are multiple varicose veins. He has 2+ pulses in his popliteal and femoral arteries. The patient is awake, alert, and oriented. He moves all 4 extremities equally. LABORATORY DATA: CBC is within normal limits. Chemistry is within normal limits. BUN 18, creatinine 1.3. Troponins are negative x3. BNP is minimally elevated at 188. IMPRESSION: This is a 60-year-old gentleman with a history of non-cortical coronary artery disease, atrial fibrillation, who was admitted to the hospital with a syncopal episode and chest pain. The patient's chest pain sounds noncardiac. His episode of syncope is clearly due to change in position. At this point, I do no think any further cardiac workup is necessary. I think it is important that the patient stay on his beta-xavier because of his history of nonsustained ventricular tachycardia. The patient will follow up with Dr. Gudino as an outpatient. CC: Dr. Chapman; Beth Gudino MD * [id number]/[facility] #: [id number] [facility]
--- NOTE | 2016-07-15 09:59 | DS ---
DATE OF ADMISSION: 07/11/2016. DATE OF DISCHARGE: 07/14/2016. ATTENDING PHYSICIAN: Dr. Abraham Hopper* (dictated by Cherise Hurd NP). SILK SCREEN PAINTER: Beth Gudino MD PRIMARY DIAGNOSES: 1. Atypical chest pain, suspected musculoskeletal. 2. Syncope, suspected related to position changes. SECONDARY DIAGNOSES: 1. Chronic kidney disease, stage 3. 2. Paroxysmal atrial fibrillation. 3. Chronic diastolic heart failure. 4. History of hemorrhagic cerebrovascular accident. 5. Insulin-dependent diabetes mellitus. 6. Hypertension. 7. Hyperlipidemia. 8. Benign prostatic hyperplasia. 9. Coronary artery disease. 10. Obstructive sleep apnea, noncompliant with CPAP. 11. Morbid obesity. 12. Peripheral neuropathy. CONSULTATIONS WHILE IN THE HOSPITAL: Dr. Isael Morales with Cardiology. STUDIES WHILE IN THE HOSPITAL: 1. Chest x-ray on 07/10/16. Radiologist's impression: No active cardiopulmonary disease. 2. Bilateral rib x-ray on 07/11/16. Radiologist's impression: No displaced rib fractures or pneumothorax are identified on this limited radiographic series. Incidentally, noted is a tilted Cook Celect IVC filter that has been persistent since at least 08/14/14. Advised reevaluation of clinical necessity of this filter. 3. Transthoracic echocardiogram on 07/12/16. Behavioral Health Case Manager's conclusion: Mild concentric left ventricular hypertrophy observed. Unable to estimate left ventricular ejection fraction. Not well visualized. Suboptimal evaluation suggests overall preserved EF with relative inferior basal hypokinesis. The left atrium is moderate to severely dilated. The right ventricle wall thickness is mildly increased. The right ventricular global systolic function is mildly reduced. The right atrium is mild to moderately dilated. There is trace of mitral regurgitation, trace to mild tricuspid regurgitation. There is borderline dilation of the ascending aorta. Similar to 11/2015 except that the EF was reported as 55% to 60%. Consider repeat evaluation with contrast enhancement to better definite the EF. 4. Brain CT on 07/12/16. Radiologist's impression: Limited evaluation due to streak artifact likely created by motion during image acquisition. The chronic findings described in body of report have not changed significantly since the CT of the brain. 5. Nuclear medicine lung V/Q scan on 07/13/16. Radiologist's impression: No evidence of pulmonary embolism. 6. Chest x-ray from 07/13/16. Radiologist's impression: Stigmata of probable chronic obstructive pulmonary disease. Upper normal heart size. No acute cardiopulmonary process evident. DISCHARGE MEDICATIONS: Continued home medications: 1. Sertraline 100 mg oral twice daily. 2. Acetaminophen 1000 mg oral every 6 hours as needed for fever, pain. 3. Isosorbide mononitrate 20 mg oral twice daily. 4. Aspirin 81 mg oral daily. 5. Hydralazine 25 mg oral 3 times daily. 6. Metoprolol tartrate 100 mg oral twice daily. 7. Amlodipine 5 mg oral daily. 8. Gabapentin 200 mg oral twice daily. 9. Furosemide 40 mg oral daily. 10. Tresiba FlexTouch 70 units subcutaneous daily at bedtime. 11. Tamsulosin 0.4 mg oral daily at bedtime. 12. Atorvastatin 20 mg oral daily at bedtime. 13. Linagliptin 5 mg oral daily. HISTORY OF PRESENT ILLNESS/HOSPITAL COURSE: Mr. Corrales is a 60-year-old male with significant past medical history for paroxysmal atrial fibrillation, who is not currently anticoagulated due to a history of hemorrhagic CVA, chronic diastolic heart failure, insulin-dependent diabetes, hypertension, hyperlipidemia, BPH, coronary artery disease, with prior RI, obstructive sleep apnea, noncompliant with CPAP, morbid obesity, peripheral neuropathy secondary to diabetes mellitus , chronic kidney disease stage 3, who presented to the emergency room after a syncopal episode with complaints of chest pain. The patient had reported feeling well and was sitting at a table working on a puzzle when the phone rang and he went to get up to get it. The next thing the patient noted was that he was on the floor. The patient reports waking up and having significant chest pain with associated shortness of breath, and diaphoresis. He denied any associated nausea or vomiting. He took a nitroglycerin and had some improvement in the chest discomfort and decided to present to the emergency room for further evaluation of his symptoms. While in the emergency room, the patient had a chest x-ray showing cardiomegaly and some chronic interstitial edema. He had an EKG showing atrial fibrillation with a controlled rate and acute ischemic changes. Hospitalist were asked to evaluate the patient for admission. It should be noted that the patient had a cardiac catheterization in 2012 with 20% stenosis of his LAD and 40% stenosis of his circumflex. The patient also had an echocardiogram in 11/2015 demonstrating as septal hypertrophy with presented ejection fraction of 55% to 60% without significant valvular disease. The patient also underwent a cardiac stress test in 10/2015. It was read as a low risk study without significant perfusion defects. It is also noted that in 12/2015, the patient had a similar episode of syncope at which time he was having sinus pauses up to 2 seconds noted on telemetry. When his beta-xavier was decreased and his diltiazem was discontinued he had a nonsustained ventricular tachycardia and was reinitiated back on his beta-blockers. While in the hospital, the patient had orthostatic vital signs that were not significant for orthostasis. He had rib x-rays showing signs of fracture after his fall at home with his syncopal event. He had a transthoracic echocardiogram showing suboptimal evaluation that suggested overall preserved EF with relative inferior basal hypokinesis. Patient continued to have chest discomfort during his stay which was reproducible with palpation. The patient has tenderness to his sternum and left chest and shoulder. It was suspected this was musculoskeletal and not cardiac in nature. During the patient's stay he was also noted to be having sinus pauses of approximately 2.1 seconds. His beta-xavier was decreased and he had an 8-beat run nonsustained V-tach. Cardiology was consulted on the patient. It was recommend to place his beta xavier back at 100 mg twice daily as it was felt it was more troublesome to be having ventricular tachycardias than short sinus pauses. Patient was also evaluated for a pulmonary embolism with the shortness of breath. He had a V/Q scan that showed no signs of PE. Due to the patient's complaint of headache he also had a brain CT with no acute findings, although it was suboptimal imaging due to motion artefact. It was not felt that the patient needed further cardiac workup and that he could follow up with Dr. Guidno as an outpatient. It was also noted that the patient has chronic lower extremity edema. Mr. Corrales is stable for discharge to home today. Vital signs are as follows: Temperature 97.4, heart rate 72 , respiratory rate 16, O2 sat 96% on room air, blood pressure 143/64. DISCHARGE PLAN: Mr. Corrales will be discharged to home. ACTIVITY: As tolerated. DIET: He should be on a heart-healthy, consistent-carbohydrate diet. As far as his atypical chest pain, I do not believe this is cardiac in nature. I suspect this is most likely musculoskeletal and as a result of his fall. At first, the patient's syncopal episode I suspect this is related to position changing and not cardiac in nature. The patient has been encouraged to take his Flomax at bedtime to see if this assists with the dizziness that he is having. The patient should see Dr. Gudino in followup. He has an appointment on 08/13 at 3 p.m. patient should also be seen and followed by his primary care provider, Dr. Tawnya Elder. He should call to set up an appointment for the next week. The patient has been encouraged to use Tylenol as needed for his pain. He has also been encouraged to monitor his weight and to notify Dr. Elder or Dr. Gudino for weight gains greater than 3 pounds in 24 hours. He will resume all of his normal medications. This summary is a report of a complex medical history and hospital stay. For further details, please see the entire medical records. Time for this discharge was 50 minutes, 25 minutes were spent [id number] with the patient discussing discharge plans and instructions. CONDITION ON DISCHARGE: Stable. Reviewed by CARLOS MANUEL PARK 07/21/16 [id number] CC: Tawnya Elder MD; Beth Gudino MD* [id number]/[facility] #: [id number] [facility]ITAL[facility]
== END 2016-07-14 15:30 | disposition home or self-care (01) | DRG 309 ==
LOC: ED 12:56 → MEDTELE 15:16 → OBSVTOIN 07-11 09:30
PROVIDERS: ADMIT Internal Medicine; ATTEND Internal Medicine
DX: I49.5 Sick sinus syndrome (principal); I13.0 Hypertensive heart and chronic kidney disease with heart failure and stage 1 through stage 4 chronic kidney disease, or unspecified chronic kidney disease; E11.22 Type 2 diabetes mellitus with diabetic chronic kidney disease; I50.32 Chronic diastolic (congestive) heart failure; Z68.43 Body mass index [BMI] 50.0-59.9, adult; R07.89 Other chest pain; N18.3 Chronic kidney disease, stage 3 (moderate); I48.0 Paroxysmal atrial fibrillation; E78.5 Hyperlipidemia, unspecified; N40.0 Benign prostatic hyperplasia without lower urinary tract symptoms; I25.10 Atherosclerotic heart disease of native coronary artery without angina pectoris; E66.01 Morbid (severe) obesity due to excess calories; G47.33 Obstructive sleep apnea (adult) (pediatric); E11.42 Type 2 diabetes mellitus with diabetic polyneuropathy; Z79.4 Long term (current) use of insulin; Z86.73 Personal history of transient ischemic attack (TIA), and cerebral infarction without residual deficits; Z79.82 Long term (current) use of aspirin; Z79.899 Other long term (current) drug therapy; I25.2 Old myocardial infarction
CPT/HCPCS: 36415; 70450; 71010; 71110; 78582; 80048; 80053; 83036; 83605; 83880; 84484; 85025; 85379; 85610; 93005; 93306; 94660; 94760; A9270-GY; A9540; A9558; G0378; J1650

== ENCOUNTER 2016-07-25 11:14 | Emergency (ER) | payer MEDICARE ==
[2016-07-25 12:16] LABS: Hematocrit 43 % (42-52); Hemoglobin 14.1 g/dl (14.0-18.0); Mean Corpuscular HGB Conc 33 g/dl (31-36); Mean Corpuscular Hemoglobin 29 pg (27-31); Mean Corpuscular Volume 89 fL (80-94); Mean Platelet Volume 9 um3 (7.4-10.4); Red Cell Distribution Width 15 % (10.5-15); White Blood Count 8.8 10^3/ul (3.5-10.8)
[2016-07-25 12:31] LABS: ALT 21 U/L (7-52); AST 26 U/L (13-39); Albumin 3.6 g/dL (3.2-5.2); Alkaline Phosphatase 78 U/L (34-104); Anion Gap 7 mmol/L (2-11); BUN/Creatinine Ratio 12.4 (8-20); Blood Urea Nitrogen 19 mg/dL (6-24); CO2 Carbon Dioxide 25 mmol/L (22-32); Calcium 8.7 mg/dL (8.6-10.3); Chloride 103 mmol/L (101-111); EGFR African American 59.6 (>60); EGFR Non-African American 46.4 (>60); Globulin 3.7 g/dL (2-4); Glucose 169 mg/dL (70-100); Potassium 3.6 mmol/L (3.5-5.0); Sodium 135 mmol/L (133-145); Total Protein 7.3 g/dL (6.4-8.9)
--- NOTE | 2016-07-25 12:37 | RAD ---
HISTORY: Headache, status post fall COMPARISONS: July 12, 2016 TECHNIQUE: Multiple contiguous axial CT scans were obtained of the head without intravenous contrast. FINDINGS: HEMORRHAGE/INFARCT: There is no hemorrhage or acute infarct. MASSES/SHIFT: There is no mass or shift. EXTRA-AXIAL SPACES: There are no extra-axial fluid collections. SULCI AND VENTRICLES: The sulci and ventricles are normal in size and position for the patient's stated age. CEREBRUM: There is hypoattenuation of the periventricular and subcortical white matter. BRAINSTEM: There are no focal parenchymal abnormalities. CEREBELLUM: There are no focal parenchymal abnormalities. VESSELS: There is calcification of the cavernous segments of the internal carotid arteries bilaterally and of the distal vertebral arteries bilaterally. PARANASAL SINUSES: The paranasal sinuses are clear. ORBITS: The orbits are unremarkable. BONES AND SOFT TISSUE: No bone or soft tissue abnormalities are noted. OTHER: None IMPRESSION: NO ACUTE INTRACRANIAL PATHOLOGY.
--- NOTE | 2016-07-25 12:41 | RAD ---
HISTORY: Neck pain, status post fall COMPARISONS: None TECHNIQUE: Multiple contiguous axial CT scans were obtained of the cervical spine without intravenous contrast, with coronal and sagittal multiplanar reformations. FINDINGS: BRAIN: The visualized brain is unremarkable CENTRAL CANAL: Evaluation of the central canal is limited on CT technique; however, there is no obvious canalicular mass or epidural hemorrhage. ALIGNMENT: There is a mild scoliotic curvature of the spine VERTEBRAL BODIES: There is diffuse osteopenia. There is multilevel anterolateral marginal osteophyte formation. There is no displaced fracture. JOINTS: There is diffuse facet and uncovertebral osteoarthritis. There is osteoarthritis of the atlantoaxial articulation. MUSCULATURE: Unremarkable INTERVERTEBRAL DISCS: There is diffuse loss of intervertebral disc height. AXIAL IMAGES: There is diffuse osseous neural foraminal narrowing most pronounced on the left at C5-C6. There is no osseous central canal stenosis SOFT TISSUES: The visualized soft tissues of the neck are unremarkable. The prevertebral fat stripe is preserved. There is calcification of the carotid and vertebral arteries. OTHER: None. IMPRESSION: 1. OSTEOPENIA. 2. DEGENERATIVE DISC DISEASE AND OSTEOARTHRITIS. 3. NO ACUTE OSSEOUS INJURY.
[2016-07-25 12:53] LABS: Alcohol < 10 mg/dL (<10)
--- NOTE | 2016-07-25 14:14 | RAD ---
HISTORY: Left hip pain, status post fall COMPARISONS: None VIEWS: 4, Frontal view of the pelvis with frontal and frog-leg views of the left hip FINDINGS: BONE DENSITY: Normal. BONES: There is no displaced fracture. JOINTS: There is mild osteoarthritis of the left hip ALIGNMENT: There is no dislocation. SOFT TISSUES: Unremarkable. OTHER FINDINGS: None. IMPRESSION: OSTEOARTHRITIS. NO RADIOGRAPHIC EVIDENCE FOR HIP FRACTURE. X-RAYS MAY BE NEGATIVE WITH NONDISPLACED HIP FRACTURE, IF THERE IS PERSISTENT CLINICAL CONCERN, RECOMMEND CONSIDERATION OF MRI. IN THE SETTING OF CONTRAINDICATION TO MRI OR LIMITATION IN EMERGENT ACCESS TO MRI, CT WOULD BE SUGGESTED.
--- NOTE | 2016-07-25 14:16 | RAD ---
HISTORY: Back pain, fall COMPARISONS: None VIEWS: 3 , Frontal, lateral, and coned-down lateral sacral views of the lumbar spine FINDINGS: ALIGNMENT: The alignment is normal. VERTEBRAL BODIES: There is mild anterior wedging of the lower thoracic spine, chronic appearing. The interpedicular distances are normal. There is multilevel lateral marginal osteophyte formation. JOINTS: There is extensive facet hypertrophic change, most pronounced at L3-L4, L4-L5, and L5-S1 INTERVERTEBRAL DISCS: There is diffuse loss of intervertebral disc height. SOFT TISSUE: Unremarkable. OTHER: The pelvis is unremarkable. An IVC filter is noted. IMPRESSION: DEGENERATIVE DISC DISEASE AND OSTEOARTHRITIS.
--- NOTE | 2016-07-25 14:21 | RAD ---
HISTORY: Back pain status post fall COMPARISONS: Chest CT dated December 02, 2015 VIEWS: 4, Frontal and lateral views of the thoracic spine. FINDINGS: ALIGNMENT: There is a scoliotic curvature of the spine. VERTEBRAL BODIES: There is multilevel bridging anterolateral marginal osteophyte formation. There is diffuse osteopenia. There is mild anterior wedging of the vertebral bodies of the mid and lower thoracic spine, stable from the CT of December 02, 2015. There is no acute loss of vertebral body height. JOINTS: Unremarkable. INTERVERTEBRAL DISCS: There is diffuse loss of intervertebral disc height. SOFT TISSUE: Unremarkable OTHER: The visualized lungs are clear. IMPRESSION: OSTEOPENIA. DEGENERATIVE DISC DISEASE AND OSTEOARTHRITIS
[2016-07-25] MEDS ORDERED: HYDROcodone/ACETAMIN 5-325 MG* 1 TAB PO ONE (15:08)
--- NOTE | 2016-07-25 17:00 | ED ---
Jovani Daniel Billy, scribed for Francisco Elder MD on 07/25/16 at 1156 . Adult Trauma - HPI Summary HPI Summary: Patient is a 60 year-old male BIBA to [facility] for evaluation after a fall earlier today. It was described as an "accidental fall," as per patient. He says that his head and neck hit the floor, but he denies any LOC. He complains of headache , neck pain, hip pain, and diffuse back pain. Pain is worse with movement. - History of Current Complaint Chief Complaint: EDExtremityLower Stated Complaint: FALL Time Seen by Provider: 07/25/16 11:49 Hx Obtained From: Patient Mechanism of Injury: Fall Loss of Consciousness: no loss of consciousness Onset/Duration: Started Hours Ago Onset of Pain: Immediate Onset Severity: Moderate Current Severity: Moderate Pain Intensity: 10 Pain Scale Used: 0-10 Numeric Location: Head, Neck, Back, Abdomen/Pelvis Aggravating Factor(s): Movement Alleviating Factor(s): Nothing Associated Signs & Symptoms: Negative: Loss of Consciousness - Additional Pertinent History Primary Care Physician: [id number] - Allergy/Home Medications Allergies/Adverse Reactions: Allergies Allergy/AdvReac Type Severity Reaction Status Date / Time Iodinated Diagnostic Agents Allergy See Comment Verified 07/25/16 11:52 IVP dye Allergy seizure Uncoded 11/09/15 07:50 PMH/Surg Hx/FS Hx/Imm Hx Endocrine/Hematology History: Reports: Hx Diabetes - DM 2 Cardiovascular History: Reports: Hx Angina, Hx Congestive Heart Failure, Hx Coronary Artery Disease, Hx Embolism - PE, Hx Hypercholesterolemia - HLD, Hx Hypertension, Hx Syncope - This admission, Other Cardiovascular Problems/ Disorders - STROKE Respiratory History: Reports: Hx Pulmonary Embolism, Hx Sleep Apnea - current CPAP user. History: Reports: Hx Benign Prostatic Hyperplasia Musculoskeletal History: Reports: Hx Arthritis - LEFT KNEE FOR YEARS Sensory History: Denies: Hx Contacts or Glasses, Hx Hearing Aid Opthamlomology History: Denies: Hx Contacts or Glasses Neurological History: Reports: Hx Transient Ischemic Attacks (TIA) Psychiatric History: Reports: Hx Anxiety, Hx Depression - Surgical History Surgery Procedure, Year, and Place: LEFT KNEE REPLACEMENT, RIGHT KNEE ARTHRSCOPY , RIGHT LEG VEIN STRIPPING Hx Anesthesia Reactions: No - Immunization History Date of Tetanus Vaccine: UTD Date of Influenza Vaccine: UTD Infectious Disease History: No Infectious Disease History: Denies: History Other Infectious Disease, Traveled Outside the [place] in Last 30 Days - Family History Known Family History: Positive: Cardiac Disease, Diabetes - Social History Alcohol Use: None Alcohol Amount: 1-2 drinks per year Substance Use Type: Reports: None Hx Tobacco Use: Yes Smoking Status (MU): Never Smoked Tobacco Have You Smoked in the Last Year: No Review of Systems Positive: Arthralgia Positive: Headache All Other Systems Reviewed And Are Negative: Yes Physical Exam - Summary Physical Exam Summary: VITAL SIGNS: Reviewed. GENERAL: Patient is an obese male who is lying comfortable in the stretcher. Patient is not in any acute respiratory distress. HEAD AND FACE: No signs of trauma. No ecchymosis, hematomas or skull depressions. No sinus tenderness. EYES: PERRLA, EOMI x 2, No injected conjunctiva, no nystagmus. No photophobia. EARS: Hearing grossly intact. Ear canals and tympanic membranes are within normal limits. MOUTH: Oropharynx within normal limits. NECK: Supple, trachea is midline, no adenopathy, no JVD, no carotid bruit, no c- spine tenderness, neck with full ROM. No meningeal signs, no Kernig's or brudzinskis signs. CHEST: Symmetric, no tenderness at palpation LUNGS: Clear to auscultation bilaterally. No wheezing or crackles. CVS: Regular rate and rhythm, S1 and S2 present, no murmurs or gallops appreciated. ABDOMEN: Soft, non-tender. No signs of distention. No rebound no guarding, and no masses palpated. Bowel sounds are normal. EXTREMITIES: FROM in all major joints, no edema, no cyanosis or clubbing. NEURO: Alert and oriented x 3. No acute neurological deficits. Speech is normal and follows commands. SKIN: Dry and warm Triage Information Reviewed: Yes Vital Signs On Initial Exam: Initial Vitals Temp Pulse Resp BP Pulse Ox 98.2 F 98 24 139/92 96 07/25/16 11:50 07/25/16 11:50 07/25/16 11:50 07/25/16 11:50 07/25/16 11:50 Vital Signs Reviewed: Yes Diagnostics - Vital Signs Vital Signs Temp Pulse Resp BP Pulse Ox 07/25/16 11:50 98.2 F 98 24 139/92 96 - Laboratory Lab Results: Lab Results 07/25/16 07/25/16 Range/Units 12:05 12:05 WBC 8.8 (3.5-10.8) 10^3/ul RBC 4.80 (4.0-5.4) 10^6/ul Hgb 14.1 (14.0-18.0) g/dl Hct 43 (42-52) % MCV 89 (80-94) fL MCH 29 (27-31) pg MCHC 33 (31-36) g/dl RDW 15 (10.5-15) % Plt Count 172 (150-450) 10^3/ul MPV 9 (7.4-10.4) um3 Neut % (Auto) 81.6 (38-83) % Lymph % (Auto) 7.4 L (25-47) % Letcher % (Auto) 10.1 H (1-9) % Eos % (Auto) 0.2 (0-6) % Baso % (Auto) 0.7 (0-2) % Absolute Neuts (auto) 7.2 (1.5-7.7) 10^3/ul Absolute Lymphs (auto) 0.7 L (1.0-4.8) 10^3/ul Absolute Monos (auto) 0.9 H (0-0.8) 10^3/ul Absolute Eos (auto) 0 (0-0.6) 10^3/ul Absolute Basos (auto) 0.1 (0-0.2) 10^3/ul Absolute Nucleated RBC 0.01 10^3/ul Nucleated RBC % 0.1 Sodium 135 (133-145) mmol/L Potassium 3.6 (3.5-5.0) mmol/L Chloride 103 (101-111) mmol/L Carbon Dioxide 25 (22-32) mmol/L Anion Gap 7 (2-11) mmol/L BUN 19 (6-24) mg/dL Creatinine 1.53 H (0.67-1.17) mg/dL Est GFR ( Amer) 59.6 (>60) Est GFR (Non-Af Amer) 46.4 (>60) BUN/Creatinine Ratio 12.4 (8-20) Glucose 169 H (70-100) mg/dL Calcium 8.7 (8.6-10.3) mg/dL Total Bilirubin 1.10 H (0.2-1.0) mg/dL AST 26 (13-39) U/L ALT 21 (7-52) U/L Alkaline Phosphatase 78 (34-104) U/L Total Protein 7.3 (6.4-8.9) g/dL Albumin 3.6 (3.2-5.2) g/dL Globulin 3.7 (2-4) g/dL Albumin/Globulin Ratio 1.0 (1-3) Serum Alcohol < 10 (<10) mg/dL Result Diagrams: 07/25/16 12:05 07/25/16 12:05 Lab Statement: Any lab studies that have been ordered have been reviewed, and results considered in the medical decision making process. - Radiology Thoracic Spine XR Radiology Interpretation Completed By: Radiologist - OSTEOPENIA. DEGENERATIVE DISC DISEASE AND OSTEOARTHRITIS Lumbar Spine XR Radiology Interpretation Completed By: Radiologist - DEGENERATIVE DISC DISEASE AND OSTEOARTHRITIS Hip XR Radiology Interpretation Completed By: Radiologist - OSTEOARTHRITIS. NO RADIOGRAPHIC EVIDENCE FOR HIP FRACTURE. X-RAYS MAY BE NEGATIVE WITH NONDISPLACED HIP FRACTURE, IF THERE IS PERSISTENT CLINICAL CONCERN, RECOMMEND CONSIDERATION OF MRI. IN THE SETTING OF CONTRAINDICATION TO MRI OR LIMITATION IN EMERGENT ACCESS TO MRI, CT WOULD BE SUGGESTED. - CT Brain CT Interpretation: No Acute Changes CT Interpretation Completed By: Radiologist Cervical Spine CT Interpretation Completed By: Radiologist - 1. OSTEOPENIA. 2. DEGENERATIVE DISC DISEASE AND OSTEOARTHRITIS. 3. NO ACUTE OSSEOUS INJURY. Re-Evaluation - Re-Evaluation First Eval Re-Evaluation Time: 16:03 Adult Trauma Course/Dx - Course Assessment/Plan: Patient is a 60 year-old male BIBA to [facility] for evaluation after a fall earlier today. It was described as an "accidental fall," as per patient. He says that his head and neck hit the floor, but he denies any LOC. He complains of headache, neck pain, hip pain, and diffuse back pain. Pain is worse with movement. Bloodwork WNL except for creatinine of 1.53 and total bilirubin of 1.1. CT of the brain and cervical spine, and x-rays of the thoracic spine, lumbar spine, and hip/pelvis shows no acute findings. Since there is no fracture or dislocation or any acute pathology, he will be discharged home to follow up with PCP. The patient is hemodynamically stable, A &Ox3. He was given fall precautions. He understands and agrees. I discussed all the findings and test results with the patient. Patient was instructed to return to the emergency room immediately if any of the symptoms return or worsens. Plan of care was discussed with the patient and understands and agrees. All questions were answered at patient satisfaction. There were no further complaints or concerns. Lung exam before discharge: CTA B/L. Good air exchange. No wheezing or crackles heard. CVS: S1 and S2 present. No murmurs appreciated. Patient is alert and oriented x 3. Patient is hemodynamically stable. Patient will be discharged home with follow up PCP in the next 2-3 days - Diagnoses Differential Diagnosis/HQI/PQRI: Positive: Contusion(s), Sprain, Strain Provider Diagnoses: Accidental fall, Head contusion, Back pain, Hip pain Discharge - Discharge Plan Condition: Stable Disposition: HOME Patient Education Materials: Fall Prevention (ED), Scalp Contusion in Adults ( ED), Back Pain (ED), Hip Pain (ED) Referrals: Tawnya Elder MD [Primary Care Provider] - The documentation as recorded by the Jovani collins Billy accurately reflects the service I personally performed and the decisions made by me, Francisco Elder MD.
[2016-07-25 19:25] LABS: Urine Bacteria Absent (Absent); Urine Bilirubin Negative (Negative); Urine Glucose Negative (Negative); Urine Nitrite Negative (Negative)
[2016-07-25 19:32] LABS: Benzodiazepine Urine Screen None Detected (None Detect)
[2016-07-25 19:54] VITALS: BP 168/99
--- NOTE | 2016-07-28 13:52 | PN ---
Progress Note - Progress Note Note: Patient urine grew proteus mirabilis 10-25,000. Was not having symptoms of UTI so no further action needed
== END 2016-07-25 19:52 | disposition home or self-care (01) ==
LOC: ED 11:14
DX: S00.93XA Contusion of unspecified part of head, initial encounter (principal); M54.9 Dorsalgia, unspecified; M25.559 Pain in unspecified hip; R51 Headache; W19.XXXA Unspecified fall, initial encounter; Y93.9 Activity, unspecified; Y92.9 Unspecified place or not applicable; Y99.9 Unspecified external cause status
CPT/HCPCS: 36415; 70450; 72070; 72100; 72125; 80053; 80307; 80320; 81003; 81015; 85025; 87077; 87086; 87186; 99283; G0480

== ENCOUNTER 2016-08-01 16:58 | Emergency (ER) | payer MEDICARE ==
[2016-08-01] MEDS ORDERED: Aspirin Low Dose CHEW TAB* 81 MG PO ONE (17:11)
[2016-08-01 17:51] LABS: Hematocrit 44 % (42-52); Hemoglobin 14.6 g/dl (14.0-18.0); Mean Corpuscular HGB Conc 34 g/dl (31-36); Mean Corpuscular Hemoglobin 30 pg (27-31); Mean Corpuscular Volume 89 fL (80-94); Mean Platelet Volume 9 um3 (7.4-10.4); Red Blood Count 4.89 10^6/ul (4.0-5.4); Red Cell Distribution Width 14 % (10.5-15); White Blood Count 7.4 10^3/ul (3.5-10.8)
--- NOTE | 2016-08-01 18:00 | RAD ---
HISTORY: Chest pain COMPARISONS: July 13, 2016 VIEWS: 2: AP sitting and lateral views of the chest. FINDINGS: CARDIOMEDIASTINAL SILHOUETTE: The cardiomediastinal silhouette is stable DORENE: The dorene are normal. PLEURA: The costophrenic angles are sharp. No pleural abnormalities are noted. LUNG PARENCHYMA: The lung volumes are low. ABDOMEN: The upper abdomen is clear. There is no subphrenic gas. BONES AND SOFT TISSUES: No bone or soft tissue abnormalities are noted. OTHER: None. IMPRESSION: LOW LUNG VOLUMES. NO ACTIVE CARDIOPULMONARY DISEASE.
[2016-08-01 18:06] LABS: Albumin 3.6 g/dL (3.2-5.2); BUN/Creatinine Ratio 8.4 (8-20); Calcium 9.2 mg/dL (8.6-10.3); EGFR African American 64.4 (>60); EGFR Non-African American 50.1 (>60); Globulin 3.6 g/dL (2-4); Magnesium 1.9 mg/dL (1.9-2.7); Potassium 3.6 mmol/L (3.5-5.0); Total Bilirubin 0.8 mg/dL (0.2-1.0); Total Protein 7.2 g/dL (6.4-8.9)
[2016-08-01 18:09] LABS: Troponin I 0.01 ng/mL (<0.04)
[2016-08-01] MEDS ORDERED: oxyCODONE/Acetamin 5/325 MG* TAB PO ONE (18:25)
[2016-08-01 18:33] LABS: T4 6.79 mcg/mL (6.09-12.23)
[2016-08-01 18:34] LABS: TSH (Thyroid Stimulating Horm) 1.01 mcIU/mL (0.34-5.60)
[2016-08-01 18:56] LABS: Urine Bacteria Absent (Absent); Urine Bilirubin Negative (Negative); Urine Glucose Negative (Negative); Urine Nitrite Negative (Negative)
[2016-08-01 19:03] LABS: C Reactive Protein 22.29 mg/L (< 5.00)
--- NOTE | 2016-08-01 19:20 | RAD ---
HISTORY: Right leg pain and redness COMPARISONS: None relevant TECHNIQUE: Multiple transverse and longitudinal ultrasound images were obtained of the right lower extremity from the level of the common femoral vein inferiorly through to the infrapopliteal veins using grayscale, color Doppler, and spectral Doppler imaging with and without compression and with augmentation. Comparison images were obtained of the contralateral common femoral vein. FINDINGS: VEINS: The peroneal vein is not well visualized. The venous system of the right lower extremity is compressible throughout its course, with normal flow on color Doppler imaging and normal response to augmentation on spectral Doppler imaging. SOFT TISSUES: There is subcutaneous edema OTHER FINDINGS: None. IMPRESSION: LIMITED VISUALIZATION OF THE CALF VEINS. SUBCUTANEOUS EDEMA. NO RIGHT LOWER EXTREMITY DEEP VEIN THROMBOSIS
[2016-08-01] MEDS ORDERED: Cephalexin CAP* 250 MG PO ONE (20:13)
[2016-08-01 20:23] VITALS: BP 121/67
--- NOTE | 2016-08-02 08:35 | ED ---
Jovani Daniel Billy, scribed for Francisco Elder MD on 08/01/16 at 1714 . HPI Chest Pain - HPI Summary HPI Summary: Patient is a 60 year-old male BBIA to [facility] for evaluation of left-sided chest pain and shortness of breath since 1500. Pain severity is 10/10. Per EMS, he was in atrial fibrillation on the monitor en route, BG 145, and blood pressure was "relatively normal." Patient denies any fall or trauma today. EMS also reports that the patient had showed signs of aphasia en route, although he is speaking in full sentences here in the ED and does not complain of aphasia at this time. Patient also complains of RLE pain, swelling, and redness. - History of Current Complaint Chief Complaint: EDChestPainROMI Time Seen by Provider: 08/01/16 17:03 Hx Obtained From: Patient, EMS Onset/Duration: Started Hours Ago Time of Onset: 15:00 Timing: Constant Initial Severity: Moderate Current Severity: Moderate Pain Intensity: 10 Pain Scale Used: 0-10 Numeric Chest Pain Location: Left Anterior Chest Pain Radiates: No Aggravating Factor(s): Other: - palpation Alleviating Factor(s): Nothing Associated Signs and Symptoms: Positive: Chest Pain, Shortness of Breath, Other : - RLE pain, swelling, and redness - Additional Pertinent History Primary Care Physician: NIELS - Allergy/Home Medications Allergies/Adverse Reactions: Allergies Allergy/AdvReac Type Severity Reaction Status Date / Time Iodinated Diagnostic Agents Allergy See Comment Verified 07/25/16 11:52 IVP dye Allergy seizure Uncoded 11/09/15 07:50 PMH/Surg Hx/FS Hx/Imm Hx Endocrine/Hematology History: Reports: Hx Diabetes - DM 2 Cardiovascular History: Reports: Hx Angina, Hx Congestive Heart Failure, Hx Coronary Artery Disease, Hx Embolism - PE, Hx Hypercholesterolemia - HLD, Hx Hypertension, Hx Syncope - This admission, Other Cardiovascular Problems/ Disorders - STROKE Respiratory History: Reports: Hx Pulmonary Embolism, Hx Sleep Apnea - current CPAP user. History: Reports: Hx Benign Prostatic Hyperplasia Musculoskeletal History: Reports: Hx Arthritis - LEFT KNEE FOR YEARS Sensory History: Denies: Hx Contacts or Glasses, Hx Hearing Aid Opthamlomology History: Denies: Hx Contacts or Glasses Neurological History: Reports: Hx Transient Ischemic Attacks (TIA) Psychiatric History: Reports: Hx Anxiety, Hx Depression - Surgical History Surgery Procedure, Year, and Place: LEFT KNEE REPLACEMENT, RIGHT KNEE ARTHRSCOPY , RIGHT LEG VEIN STRIPPING Hx Anesthesia Reactions: No - Immunization History Date of Tetanus Vaccine: UTD Date of Influenza Vaccine: UTD Infectious Disease History: Denies: History Other Infectious Disease, Traveled Outside the [place] in Last 30 Days - Family History Known Family History: Positive: Cardiac Disease, Diabetes - Social History Alcohol Use: None Alcohol Amount: 1-2 drinks per year Substance Use Type: Reports: None Hx Tobacco Use: Yes Smoking Status (MU): Never Smoked Tobacco Have You Smoked in the Last Year: No Review of Systems Positive: Chest Pain Positive: Shortness Of Breath Musculoskeletal: Other - RLE pain, swelling, and redness All Other Systems Reviewed And Are Negative: Yes Physical Exam - Summary Physical Exam Summary: VITAL SIGNS: Reviewed. GENERAL: Patient is a well-developed, nourished, and obese male who is in pain distress secondary to the chest pain. HEAD AND FACE: No signs of trauma. No ecchymosis, hematomas or skull depressions. No sinus tenderness. EYES: PERRLA, EOMI x 2, No injected conjunctiva, no nystagmus. EARS: Hearing grossly intact. Ear canals and tympanic membranes are within normal limits. MOUTH: Oropharynx within normal limits. NECK: Supple, trachea is midline, no adenopathy, no JVD, no carotid bruit, no c- spine tenderness, neck with full ROM. CHEST: Chest pain is easily reproducible on the left and right sides of the chest. LUNGS: Clear to auscultation bilaterally. No wheezing or crackles. CVS: Regular rate and rhythm, S1 and S2 present, no murmurs or gallops appreciated. ABDOMEN: Soft, obese, non-tender. No signs of distention. No rebound no guarding , and no masses palpated. Bowel sounds are normal. EXTREMITIES: FROM in all major joints, extremities with bilateral chronic changes secondary to vascular insufficiency. There are visible ulcers to the right leg. Pulses are faint, but present. NEURO: Alert and oriented x 2. No acute neurological deficits. Speech is normal and follows commands. SKIN: Dry and warm Triage Information Reviewed: Yes Vital Signs On Initial Exam: Initial Vitals Temp Pulse Resp BP Pulse Ox 97.5 F 89 22 124/83 96 08/01/16 17:04 08/01/16 17:04 08/01/16 17:04 08/01/16 17:04 08/01/16 17:04 Vital Signs Reviewed: Yes - Wallace Coma Scale Best Eye Response: 4 - Spontaneous Best Motor Response: 6 - Obeys Commands Best Verbal Response: 5 - Oriented Diagnostics - Vital Signs Vital Signs Temp Pulse Resp BP Pulse Ox 08/01/16 17:04 97.5 F 89 22 124/83 96 - Laboratory Result Diagrams: 08/01/16 17:30 08/01/16 17:30 Lab Statement: Any lab studies that have been ordered have been reviewed, and results considered in the medical decision making process. - Radiology CXR Radiology Interpretation Completed By: Radiologist - Low lung volumes. No active cardiopulmonary disease. - EKG 1705 EKG Interpretation: afib 96 bpm EKG Comparison: No Significant Change - Compared to 07/11/16 Chest Pain Course/Dx - Course Assessment/Plan: Patient is a 60 year-old male BBIA to [facility] for evaluation of left-sided chest pain and shortness of breath since 1500. Pain severity is 10/ 10. Per EMS, he was in atrial fibrillation on the monitor en route, BG 145, and blood pressure was "relatively normal." Patient denies any fall or trauma today. EMS also reports that the patient had showed signs of aphasia en route, although he is speaking in full sentences here in the ED and does not complain of aphasia at this time. Previous CT of the brain from 07/25/16 was reviewed, and it showed no acute intracranial pathology. We have no suspicion for a stroke due to the fact that he is alert and oriented at baseline, and the NIHSS = 0. Test results WNL except for creatinine 1.43 and glucose of 150. CXR shows low lung volumes, no active cardiopulmonary disease. In the ED course, the patients pain is reproducible on both sides of the chest. EKG shows no STEMI. Therefore I believe that the patient has chest wall pain. He was ambulating in the ER well. He was given one Percocet for the pain. At this time, we are awaiting an US of the RLE since he also complains of RLE pain, swelling, and redness. We want to rule-out DVT. The patient will be signed out to Dr. Larsen at shift change to follow up with the ultrasound of the RLE. If it returns negative, the patient can be discharged home. I do not suspect that the patient has cellulitis since he does not have any increased WBC. - Diagnoses Provider Diagnoses: Chest wall pain Discharge - Discharge Plan Condition: Stable Disposition: OTHER Discharge Disposition Comment: Signed out to Dr. Larsen pending RLE ultrasound. Referrals: Tawnya Elder MD [Primary Care Provider] - National Institutes [employer] Health - NIH Scale Level of Consciousness: Alert/Keenly Responsive Ask Patient the Month and His/Her Age: Both Correct Ask Pt to Open/Close Eyes and Environmental Compliance Technician/Release Non-Paretic Hand: Both Correctly Best Gaze (Only Horizontal Eye Movement): Normal Visual Field Testing: No Visual Loss Facial Paresis-Pt to Smile & Close Eyes or Grimace Symmetry: Normal/Symmetrical Motor Function - Right Arm: No Drift-Holds 10 Seconds Motor Function - Left Arm: No Drift-Holds 10 Seconds Motor Function - Right Leg: No Drift-Holds 10 Seconds Motor Function - Left Leg: No Drift-Holds 10 Seconds Limb Ataxia-Must be out of Proportion to Weakness Present: Absent Sensory (Use Pinprick to Test Arms/Legs/Trunk/Face): Normal Best Language (Describe Picture, Name Items): No Aphasia Dysarthria (Read Several Words): Normal Extinction and Inattention: No Abnormality Total Score: 0 The documentation as recorded by the Jovani collins Billy accurately reflects the service I personally performed and the decisions made by me, Francisco Elder MD.
--- NOTE | 2016-08-03 08:43 | PN ---
Progress Note - Progress Note Note: Preliminary urine culture grew Proteus Mirabilis 25-50,000. will wait for final culture as placed on keflex at this time for cellulitis.
--- NOTE | 2016-08-04 15:12 | PN ---
Progress Note - Progress Note Note: Proteus Mirabilis grew at urine culture. Patient was appropriately placed on Keflex for cellulitis. PM sensitive to Cefazolin and Cefepime. Nothing further at this time. Sandy Damon PA-C
== END 2016-08-01 20:20 | disposition home or self-care (01) ==
LOC: ED 16:58
DX: R07.89 Other chest pain (principal); Z91.041 Radiographic dye allergy status; E11.9 Type 2 diabetes mellitus without complications; I11.0 Hypertensive heart disease with heart failure; I50.9 Heart failure, unspecified; I25.119 Atherosclerotic heart disease of native coronary artery with unspecified angina pectoris; Z86.711 Personal history of pulmonary embolism; Z86.73 Personal history of transient ischemic attack (TIA), and cerebral infarction without residual deficits; R94.31 Abnormal electrocardiogram [ECG] [EKG]; I44.4 Left anterior fascicular block; I48.91 Unspecified atrial fibrillation; Z79.899 Other long term (current) drug therapy
CPT/HCPCS: 36415; 71020; 80053; 81003; 81015; 82550; 82553; 83605; 83735; 83880; 84436; 84443; 84484; 85025; 85610; 86140; 87077; 87086; 87186; 93005; 99283; A9270-GY

== ENCOUNTER 2016-09-06 21:59 | Inpatient (IN) | payer MEDICARE ==
[2016-09-06 22:51] LABS: Hematocrit 39 % (42-52); Mean Corpuscular HGB Conc 33 g/dl (31-36); Mean Corpuscular Hemoglobin 30 pg (27-31); Mean Corpuscular Volume 92 fL (80-94); Mean Platelet Volume 9 um3 (7.4-10.4); Red Blood Count 4.29 10^6/ul (4.0-5.4); Red Cell Distribution Width 14 % (10.5-15); White Blood Count 12.8 10^3/ul (3.5-10.8)
[2016-09-06 23:02] LABS: Albumin 3.2 g/dL (3.2-5.2); BUN/Creatinine Ratio 13.1 (8-20); Calcium 8.8 mg/dL (8.6-10.3); EGFR African American 63.4 (>60); EGFR Non-African American 49.3 (>60); Globulin 3.8 g/dL (2-4); Potassium 3.7 mmol/L (3.5-5.0); Total Bilirubin 1.5 mg/dL (0.2-1.0)
--- NOTE | 2016-09-06 23:14 | ED ---
Vanna Daniel SooYoung, scribed for Barry Larsen MD on 09/06/16 at 2209 . Lower Extremity - HPI Summary HPI Summary: A 60 y/o M KEYUR presents to ED with c/o RLE pain above ankle onset yesterday night. Associated sx: edema and erythema of RLE. Aggravating factors: ambulation , bearing weight. Pt uses a cane. He says he is scheduled to see his PCP next week, last saw PCP 5-6 weeks ago. - History of Current Complaint Stated Complaint: LOWER RT EXTREMITY PAIN/SOB Time Seen by Provider: 09/06/16 22:04 Hx Obtained From: Patient, EMS Onset of Pain: Days - last night, Prior to Arrival Onset/Duration: Still Present Severity Initially: Moderate Severity Currently: Moderate Timing: Constant Location: Is Discrete @ - RLE, above ankle Associated Signs And Symptoms: Positive: Swelling, Redness Aggravating Factor(s): Ambulation, Weight Bearing - Allergies/Home Medications Allergies/Adverse Reactions: Allergies Allergy/AdvReac Type Severity Reaction Status Date / Time Iodinated Diagnostic Agents Allergy See Comment Verified 09/06/16 22:15 IVP dye Allergy seizure Uncoded 09/06/16 22:15 PMH/Surg Hx/FS Hx/Imm Hx Previously Healthy: No Endocrine/Hematology History: Reports: Hx Diabetes - DM 2 Cardiovascular History: Reports: Hx Angina, Hx Congestive Heart Failure, Hx Coronary Artery Disease, Hx Embolism - PE, Hx Hypercholesterolemia - HLD, Hx Hypertension, Hx Syncope - This admission, Other Cardiovascular Problems/ Disorders - STROKE Respiratory History: Reports: Hx Pulmonary Embolism, Hx Sleep Apnea - current CPAP user. History: Reports: Hx Benign Prostatic Hyperplasia Musculoskeletal History: Reports: Hx Arthritis - LEFT KNEE FOR YEARS Sensory History: Denies: Hx Contacts or Glasses, Hx Hearing Aid Opthamlomology History: Denies: Hx Contacts or Glasses Neurological History: Reports: Hx Transient Ischemic Attacks (TIA) Psychiatric History: Reports: Hx Anxiety, Hx Depression - Surgical History Surgery Procedure, Year, and Place: LEFT KNEE REPLACEMENT, RIGHT KNEE ARTHRSCOPY , RIGHT LEG VEIN STRIPPING Hx Anesthesia Reactions: No - Immunization History Date of Tetanus Vaccine: UTD Date of Influenza Vaccine: UTD Infectious Disease History: Denies: History Other Infectious Disease - Family History Known Family History: Positive: Cardiac Disease, Diabetes - Social History Occupation: Retired Lives: With Family Alcohol Use: None Alcohol Amount: 1-2 drinks per year Hx Substance Use: No Substance Use Type: Reports: None Hx Tobacco Use: Yes Smoking Status (MU): Never Smoked Tobacco Have You Smoked in the Last Year: No Review of Systems Positive: Other - pos: RLE pain above ankle Positive: Other - pos: RLE erythema All Other Systems Reviewed And Are Negative: Yes Physical Exam Triage Information Reviewed: Yes Vital Signs On Initial Exam: Initial Vitals Temp Pulse Resp BP Pulse Ox 98.4 F 96 18 138/59 95 09/06/16 22:46 09/06/16 22:46 09/06/16 22:46 09/06/16 22:46 09/06/16 22:46 Vital Signs Reviewed: Yes Appearance: Positive: Pain Distress - mild discomfort, Obese Skin: Positive: Warm, Other - stasis dermatitis bilat le weeping edema Head/Face: Positive: Normal Head/Face Inspection Eyes: Positive: [place] ENT: Positive: Hearing grossly normal Neck: Positive: Supple Respiratory/Lung Sounds: Positive: Clear to Auscultation, Breath Sounds Present Cardiovascular: Positive: RRR Abdomen Description: Positive: Nontender - obese, Soft Bowel Sounds: Positive: Present Musculoskeletal: Positive: Strength/ROM Intact, Edema Left, Edema Right - 4+ bilat Neurological: Positive: Alert, Oriented to Person Place, Time Psychiatric: Positive: Affect/Mood Appropriate Diagnostics - Vital Signs Vital Signs Temp Pulse Resp BP Pulse Ox 09/06/16 22:46 98.4 F 96 18 138/59 95 - Laboratory Lab Results: Lab Results 09/06/16 09/06/16 09/06/16 Range/Units 22:30 22:30 22:30 WBC 12.8 H (3.5-10.8) 10^3/ul RBC 4.29 (4.0-5.4) 10^6/ul Hgb 13.0 L (14.0-18.0) g/dl Hct 39 L (42-52) % MCV 92 (80-94) fL MCH 30 (27-31) pg MCHC 33 (31-36) g/dl RDW 14 (10.5-15) % Plt Count 192 (150-450) 10^3/ul MPV 9 (7.4-10.4) um3 Neut % (Auto) 83.0 (38-83) % Lymph % (Auto) 7.9 L (25-47) % [place] % (Auto) 8.4 (1-9) % Eos % (Auto) 0.2 (0-6) % Baso % (Auto) 0.5 (0-2) % Absolute Neuts (auto) 10.6 H (1.5-7.7) 10^3/ul Absolute Lymphs (auto) 1.0 (1.0-4.8) 10^3/ul Absolute Monos (auto) 1.1 H (0-0.8) 10^3/ul Absolute Eos (auto) 0 (0-0.6) 10^3/ul Absolute Basos (auto) 0.1 (0-0.2) 10^3/ul Absolute Nucleated RBC 0 10^3/ul Nucleated RBC % 0 Sodium 132 L (133-145) mmol/L Potassium 3.7 (3.5-5.0) mmol/L Chloride 102 (101-111) mmol/L Carbon Dioxide 23 (22-32) mmol/L Anion Gap 7 (2-11) mmol/L BUN 19 (6-24) mg/dL Creatinine 1.45 H (0.67-1.17) mg/dL Est GFR ( Amer) 63.4 (>60) Est GFR (Non-Af Amer) 49.3 (>60) BUN/Creatinine Ratio 13.1 (8-20) Glucose 178 H (70-100) mg/dL Calcium 8.8 (8.6-10.3) mg/dL Total Bilirubin 1.50 H (0.2-1.0) mg/dL AST 32 (13-39) U/L ALT 20 (7-52) U/L Alkaline Phosphatase 60 (34-104) U/L B-Natriuretic Peptide 172 H ( - 100) pg/mL Total Protein 7.0 (6.4-8.9) g/dL Albumin 3.2 (3.2-5.2) g/dL Globulin 3.8 (2-4) g/dL Albumin/Globulin Ratio 0.8 L (1-3) Result Diagrams: 09/06/16 22:30 09/06/16 22:30 Lab Statement: Any lab studies that have been ordered have been reviewed, and results considered in the medical decision making process. - Ultrasound No standard instances Ultrasound Interpretation: No Acute Changes - LE VENOUS DOPPLER, IMPRESSION: no DVT Ultrasound Interpretation Completed By: Radiologist Re-Evaluation - Re-Evaluation 1 Re-Evaluation Time: 23:52 Comment: Pt will be ambulation challenged. Pt staTES FEELS UNSAFE TO ATTEMPT TO AMBULATE, D/W HOSPITALIST, WILL ADMIT PT Lower Extremity Course/Dx - Course Course Of Treatment: Pt is a 60 y/o M BIBA presenting with c/o RLE pain above ankle onset yesterday night. Associated sx: edema and erythema of RLE. Aggravating factors: ambulation, bearing weight. Pt uses a cane. He says he is scheduled to see his PCP next week, last saw PCP 5-6 weeks ago. Labs show elevated WBC of 12.8; low Hgb and Hct; creatinine is 1.45; glucose is 178; bilirubin is 1.5; BNP is 172. LE venous doppler found no DVT. Attempted to ambulate pt, but pt refused, felt unsteady. Will consult with hospitalist. - Diagnoses Provider Diagnoses: chronic leg edema - Physician Notifications Discussed Care Of Patient With: Rogelio Hernandez - hospitalist Time Discussed With Above Provider: 00:03 Instructed by Provider To: Admit As Observation Discharge - Discharge Plan Condition: Stable Disposition: HOME The documentation as recorded by the Vanna collins SooYoung accurately reflects the service I personally performed and the decisions made by me, Barry Larsen MD.
--- NOTE | 2016-09-07 00:34 | HP ---
H&P (Free Text) History and Physical: PCP: Melvi Chapman MD Date/Time of Evaluation: 0005 CC: BLE redness & swelling HPI: Mr Corrales is a 60YO morbidly obese male HX DM, HTN, CAD, HLD, CKD, pAFIB, & intra-cranial hemorrhage presents with less than 24hours of redness and pain in the RLE associated with subjective chills, but no open wounds or discharge. Pain is described as "burning" and is worse with palpation and standing. He denies recent fall or injury. ED evaluation is most notable for WBCs of 12k. Labs were otherwise reasonably at baseline. Venous dopplar is reportedly negative for DVT. ED physician informed him of plan to discharge on oral ABX and patient refused, stating that even with the help of his he cannot manage at home. As such, call was made for senior care admission. PMedHx pAFIB DM1 peripheral neuropathy CKD stg 3 CAD/IL chronic diastolic HF intracranial hemorrhage HTN HLD MIGUEL A intolerant of CPAP BPH depression Ambulatory Orders Nursing to reconcile. Linagliptin (NF) [Tradjenta (NF)] 5 mg PO DAILY 07/02/14 Atorvastatin* [Lipitor 20 MG*] 20 mg PO BEDTIME 10/09/15 Aspirin Low Dose CHEW TAB* [Aspirin Low Dose TAB*] 81 mg PO DAILY tab.chew 08/21 Acetaminophen 1,000 mg PO Q6HR PRN 11/24/15 Furosemide TAB* [Lasix TAB*] 40 mg PO DAILY #0 12/20/15 Metoprolol Tartrate TAB* [Lopressor TAB*] 100 mg PO BID #0 12/20/15 Gabapentin CAP(*) [Neurontin 100 mg CAP(*)] 200 mg PO BID 07/10/16 Insulin Degludec [Tresiba Flextouch] 70 unit SUBCUT BEDTIME 07/10/16 Isosorbide Mononitrate (NF) 20 mg PO BID 07/10/16 Sertraline* [Zoloft*] 100 mg PO BID 07/10/16 amLODIPine TAB* [Norvasc 5 mg TAB*] 5 mg PO DAILY 07/10/16 hydrALAZINE TAB* [Apresoline TAB*] 25 mg PO TID 07/10/16 Tamsulosin CAP* [Flomax CAP*] 0.4 mg PO QPM #0 07/14/16 Cephalexin CAP* [Keflex CAP*] 250 mg PO QID #30 cap 08/01/16 Allergies Iodinated Diagnostic Agents Allergy (Verified 09/06/16 22:15) See Comment seizure IVP dye Allergy (Uncoded 09/06/16 22:15) seizure PSurgHx knee arthroscopy vein stripping SocHx: denies tobacco, alcohol, & recreational drugs; lives with his ; full code status FamHx: positive for DM, HTN, HLD, CAD ROS: as above, otherwise reviewed and all were negative Constitutional: NAD, normally developed, morbidly obese white male vitals: Vital Signs Temp 36.9 C 09/06/16 22:46 Pulse 96 09/06/16 22:46 Resp 18 09/06/16 22:46 BP 138/59 09/06/16 22:46 Pulse Ox 95 09/06/16 22:46 Intake & Output 09/06/16 09/06/16 09/07/16 11:59 23:59 11:59 Weight 163.293 kg HEENM: atraumatic; sclera/conjunctiva: non-icteric/clear; hearing: clinically intact; oropharynx: clear, mucosa moist Neck: soft tissue: non-tender; thyroid: normal Pulmonary: clear to auscultation bilaterally, good aeration, no accessory muscle use CV: RR/RR, normal S1S2, no carotid bruit, no jugular venous distention, 2+ B DP/ PT, 3+ BLE edema Abdominal: soft, non-distended, non-tender, no rebound/guarding/rigidity, normoactive bowel sounds, no hepatosplenomegaly or masses, no costovertebral angle tenderness Musculoskeletal: general: grossly intact; gait: refuses to attempt ambulation Integumental: R>L LE erythema and edema with tenderness but no open wound or weeping Psychiatric orientation: AA&O to PPS affect: calm mood: cooperative eye contact: fair content: reliable responses: timely insight: fair Testing: Lab Results 09/06/16 09/06/16 09/06/16 Range/Units 22:30 22:30 22:30 WBC 12.8 H (3.5-10.8) 10^3/ul RBC 4.29 (4.0-5.4) 10^6/ul Hgb 13.0 L (14.0-18.0) g/dl Hct 39 L (42-52) % MCV 92 (80-94) fL MCH 30 (27-31) pg MCHC 33 (31-36) g/dl RDW 14 (10.5-15) % Plt Count 192 (150-450) 10^3/ul MPV 9 (7.4-10.4) um3 Neut % (Auto) 83.0 (38-83) % Lymph % (Auto) 7.9 L (25-47) % [place] % (Auto) 8.4 (1-9) % Eos % (Auto) 0.2 (0-6) % Baso % (Auto) 0.5 (0-2) % Absolute Neuts (auto) 10.6 H (1.5-7.7) 10^3/ul Absolute Lymphs (auto) 1.0 (1.0-4.8) 10^3/ul Absolute Monos (auto) 1.1 H (0-0.8) 10^3/ul Absolute Eos (auto) 0 (0-0.6) 10^3/ul Absolute Basos (auto) 0.1 (0-0.2) 10^3/ul Absolute Nucleated RBC 0 10^3/ul Nucleated RBC % 0 Sodium 132 L (133-145) mmol/L Potassium 3.7 (3.5-5.0) mmol/L Chloride 102 (101-111) mmol/L Carbon Dioxide 23 (22-32) mmol/L Anion Gap 7 (2-11) mmol/L BUN 19 (6-24) mg/dL Creatinine 1.45 H (0.67-1.17) mg/dL Est GFR ( Amer) 63.4 (>60) Est GFR (Non-Af Amer) 49.3 (>60) BUN/Creatinine Ratio 13.1 (8-20) Glucose 178 H (70-100) mg/dL Calcium 8.8 (8.6-10.3) mg/dL Total Bilirubin 1.50 H (0.2-1.0) mg/dL AST 32 (13-39) U/L ALT 20 (7-52) U/L Alkaline Phosphatase 60 (34-104) U/L B-Natriuretic Peptide 172 H ( - 100) pg/mL Total Protein 7.0 (6.4-8.9) g/dL Albumin 3.2 (3.2-5.2) g/dL Globulin 3.8 (2-4) g/dL Albumin/Globulin Ratio 0.8 L (1-3) Impression: 60M morbidly obese requesting senior care admission for BLE lymphedema DIAGNOSIS & PLAN Primary BLE lymphedema with RLE cellulitis : continue PO cephalexin : consider wound clinic referral Secondary pAFIB : continue metoprolol DM : continue linagliptin & degludec : consistent carb diet peripheral neuropathy : continue gabapentin CKD stg 3 : periodic monitoring CAD/IL : continue aspirin, isosorbide mononitrate, metoprolol, & atorvastatin chronic diastolic HF : continue furosemide : heart healthy diet : strict I&Os : daily weights HX intracranial hemorrhage : no acute issues HTN : continue furosemide, metoprolol, hydralazine, & amlodipine HLD : continue atorvastatin MIGUEL A : intolerant of CPAP BPH : continue tamsulosin depression : continue sertraline Admission Rational: senior care admission for BLE lymphedema DVTp: SCDs Code Status: full HCP:
[2016-09-07] MEDS: oxyCODONE TAB* 5 MG TAB PO PRN ×4 (02:10→22:30)
--- NOTE | 2016-09-07 07:35 | RAD ---
HISTORY: Pain and swelling of right lower extremity COMPARISONS: August 01, 2016 TECHNIQUE: Multiple transverse and longitudinal ultrasound images were obtained of the right lower extremity from the level of the common femoral vein inferiorly through to the infrapopliteal veins using grayscale, color Doppler, and spectral Doppler imaging with and without compression and with augmentation. Comparison images were obtained of the contralateral common femoral vein. FINDINGS: VEINS: The venous system of the right lower extremity is compressible throughout its course, with normal flow on color Doppler imaging and normal response to augmentation on spectral Doppler imaging. SOFT TISSUES: There is subcutaneous edema of the calf.. OTHER FINDINGS: None. IMPRESSION: NO RIGHT LOWER EXTREMITY DEEP VEIN THROMBOSIS
[2016-09-07] MEDS: Gabapentin CAP(*) 100 MG PO SCH ×2 (09:13→22:20)
[2016-09-07] MEDS: Cephalexin CAP* 250 MG PO SCH (09:14)
[2016-09-07] MEDS: amLODIPine TAB* 5 MG PO SCH (09:14)
[2016-09-07] MEDS: Aspirin Low Dose CHEW TAB* 81 MG PO SCH (09:14)
[2016-09-07] MEDS: Sertraline* 100 MG TAB PO SCH ×2 (09:14→22:20)
[2016-09-07] MEDS: Metoprolol Tartrate TAB* 100 MG TAB PO SCH ×2 (09:14→22:20)
[2016-09-07] MEDS: Furosemide TAB* 40 MG PO SCH (09:14)
[2016-09-07] MEDS: hydrALAZINE TAB* 25 MG PO SCH ×3 (09:14→22:20)
[2016-09-07] MEDS: LINAGLIPTIN 5 MG PO SCH (10:27)
[2016-09-07] MEDS: ISOSORBIDE MONONITRATE 20 MG PO SCH ×2 (14:30→22:21)
--- NOTE | 2016-09-07 14:33 | PN ---
Subjective Date of Service: 09/07/16 Interval History: Patient seen this morning. Continues to have RLE pain. Limiting his mobility. Reported some chills in that past day or so. Family History: Unchanged from Admission Social History: Unchanged from Admission Past Medical History: Unchanged from Admission Objective Active Medications: Amlodipine Besylate (Norvasc Tab*) 5 mg PO DAILY KIMBERLY Aspirin (Aspirin Low Dose Tab*) 81 mg PO DAILY KIMBERLY Atorvastatin Calcium (Lipitor*) 20 mg PO BEDTIME KIMBERLY Furosemide (Lasix Tab*) 40 mg PO DAILY KIMBERLY Gabapentin (Neurontin Cap(*)) 200 mg PO BID KIMBERLY Hydralazine HCl (Apresoline Tab*) 25 mg PO TID KIMBERLY Cefazolin Sodium 1 gm/ Sodium (Chloride) 50 mls @ 200 mls/hr IVPB Q8H KIMBERLY Isosorbide Mononitrate (Isosorbide Mononitrate (Nf)) 20 mg PO BID KIMBERLY Linagliptin (Tradjenta (Nf)) 5 mg PO DAILY KIMBERLY Metoprolol Tartrate (Lopressor Tab*) 100 mg PO BID KIMBERLY Non-Formulary Medication (Insulin Degludec [Tresiba Flextouch]) 70 unit SUBCUT BEDTIME KIMBERLY Oxycodone HCl (Roxycodone Tab*) 5 mg PO Q4H PRN Sertraline HCl (Zoloft*) 100 mg PO BID KIMBERLY Tamsulosin HCl (Flomax Cap*) 0.4 mg PO QPM [facility] Vital Signs 09/07/16 09/07/16 09/07/16 00:54 01:47 02:10 Temperature 98.2 F Pulse Rate 103 Respiratory 20 20 20 Rate Blood Pressure 160/87 (mmHg) O2 Sat by Pulse 95 Oximetry 09/07/16 09/07/16 09/07/16 04:10 07:56 08:00 Temperature 98.7 F Pulse Rate 98 Respiratory 20 17 20 Rate Blood Pressure 130/53 (mmHg) O2 Sat by Pulse 92 Oximetry Oxygen Devices in Use Now: None Appearance: Middle-aged, M, sitting on bed in NAD Eyes: No Scleral Icterus Ears/Nose/Mouth/Throat: Mucous Membranes Moist Neck: NL Appearance and Movements; NL JVP Respiratory: Symmetrical Chest Expansion and Respiratory Effort, Clear to Auscultation Cardiovascular: NL Sounds; No Murmurs; No JVD, RRR Abdominal: - - Obese, soft, NTND, BS+ Lymphatic: No Cervical Adenopathy Extremities: - - B/L LE edema, R>L, erythema from R foot to upper marie, TTP, slightly warm Skin: - - Chronic LE skin changes Neurological: Alert and Oriented x 3 Result Diagrams: 09/06/16 22:30 09/06/16 22:30 Assess/Plan/Problems-Billing Assessment: RLE cellulitis in a 60 yo M with hx of HTN, HLD, DM, CAD, chronic diastolic CHF , CKD3, pAF - Patient Problems (1) Cellulitis Current Visit: No Comment: RLE. Significant tenderness and erythema limiting mobility. WBC mildly elevated. Switch to IV Ancef. Keep extremities elevated as much as possible. (2) Atrial fibrillation Current Visit: No Comment: Paroxysmal. Continue Metoprolol. Not on AC due to h /o hemorrhagic CVA (3) CKD stage 3 due to type 2 diabetes mellitus Current Visit: No Comment: Stable, creatinine at baseline (4) Neuropathic pain Current Visit: No Comment: Due to DM cont gabapentin (5) CAD (coronary artery disease) Current Visit: No Comment: Cath in 2013 showed moderate disease. Continue ASA, beta-xavier and statin (6) DM type 2 (diabetes mellitus, type 2) Current Visit: No Comment: Continue home medications for now HbgA1c 7.0% in 07/2016 (7) Chronic diastolic (congestive) heart failure Current Visit: No Comment: No acute exacerbation Continue home dose of Lasix (8) DVT prophylaxis Current Visit: No Comment: HSQ Status and Disposition: Inpatient for IV ABx
[2016-09-07] MEDS: ceFAZolin VIAL(*) 1 GM in NS 0.9% 50 ML* 50 ML IVPB SCH ×2 (16:29→22:30)
[2016-09-07] MEDS: Tamsulosin CAP* 0.4 MG PO SCH (20:16)
[2016-09-07] MEDS ORDERED: INSULIN DEGLUDEC 70 UNIT SUBCUT SCH (21:00)
[2016-09-07] MEDS: Atorvastatin* 20 MG TAB PO SCH (22:19)
[2016-09-07] MEDS: Heparin VIAL(*) 5000 UNITS/ML VIAL (FIVE THOUSAND) SUBCUT SCH (22:20)
[2016-09-08] MEDS: Cephalexin CAP* 250 MG PO SCH (02:49)
[2016-09-08 05:31] LABS: Hematocrit 37 % (42-52); Hemoglobin 12.3 g/dl (14.0-18.0); Mean Corpuscular HGB Conc 34 g/dl (31-36); Mean Corpuscular Hemoglobin 30 pg (27-31); Mean Corpuscular Volume 91 fL (80-94); Mean Platelet Volume 9 um3 (7.4-10.4); Red Blood Count 4.03 10^6/ul (4.0-5.4); Red Cell Distribution Width 15 % (10.5-15); White Blood Count 9.6 10^3/ul (3.5-10.8)
[2016-09-08] MEDS: Heparin VIAL(*) 5000 UNITS/ML VIAL (FIVE THOUSAND) SUBCUT SCH ×3 (06:53→21:45)
[2016-09-08] MEDS: ceFAZolin VIAL(*) 1 GM in NS 0.9% 50 ML* 50 ML IVPB SCH ×3 (06:54→21:47)
[2016-09-08] MEDS: hydrALAZINE TAB* 25 MG PO SCH ×3 (09:25→22:00)
[2016-09-08] MEDS: ISOSORBIDE MONONITRATE 20 MG PO SCH ×2 (09:25→21:46)
[2016-09-08] MEDS: LINAGLIPTIN 5 MG PO SCH (09:25)
[2016-09-08] MEDS: Metoprolol Tartrate TAB* 100 MG TAB PO SCH ×2 (09:25→23:32)
[2016-09-08] MEDS: Gabapentin CAP(*) 100 MG PO SCH ×2 (09:26→21:46)
[2016-09-08] MEDS: Furosemide TAB* 40 MG PO SCH (09:26)
[2016-09-08] MEDS: amLODIPine TAB* 5 MG PO SCH (09:26)
[2016-09-08] MEDS: Aspirin Low Dose CHEW TAB* 81 MG PO SCH (09:27)
[2016-09-08] MEDS: Sertraline* 100 MG TAB PO SCH ×2 (09:27→21:46)
--- NOTE | 2016-09-08 09:42 | PN ---
Subjective Date of Service: 09/08/16 Interval History: Patient seen this morning. Reports little change in his symptoms. Still having significant RLE pain, limiting his mobility. No fever. Reports feeling chilly. No CP, SOB. Family History: Unchanged from Admission Social History: Unchanged from Admission Past Medical History: Unchanged from Admission Objective Active Medications: Amlodipine Besylate (Norvasc Tab*) 5 mg PO DAILY KIMBERLY Aspirin (Aspirin Low Dose Tab*) 81 mg PO DAILY KIMBERLY Atorvastatin Calcium (Lipitor*) 20 mg PO BEDTIME KIMBERLY Furosemide (Lasix Tab*) 40 mg PO DAILY KIMBERLY Gabapentin (Neurontin Cap(*)) 200 mg PO BID KIMBERLY Heparin Sodium (Porcine) (Heparin Vial(*)) 5,000 units SUBCUT Q8HR KIMBERLY Hydralazine HCl (Apresoline Tab*) 25 mg PO TID KIMBERLY Cefazolin Sodium 1 gm/ Sodium (Chloride) 50 mls @ 200 mls/hr IVPB Q8H KIMBERLY Isosorbide Mononitrate (Isosorbide Mononitrate (Nf)) 20 mg PO BID KIMBERLY Linagliptin (Tradjenta (Nf)) 5 mg PO DAILY KIMBERLY Metoprolol Tartrate (Lopressor Tab*) 100 mg PO BID KIMBERLY Non-Formulary Medication (Insulin Degludec [Tresiba Flextouch]) 70 unit SUBCUT BEDTIME KIMBERLY Oxycodone HCl (Roxycodone Tab*) 5 mg PO Q4H PRN Sertraline HCl (Zoloft*) 100 mg PO BID KIMBERLY Tamsulosin HCl (Flomax Cap*) 0.4 mg PO QPM [facility] Vital Signs 09/07/16 09/07/16 09/07/16 11:15 11:54 14:28 Temperature 98.0 F Pulse Rate 85 Respiratory 18 16 20 Rate Blood Pressure 123/74 (mmHg) O2 Sat by Pulse 93 Oximetry 09/07/16 09/07/16 09/07/16 15:42 20:10 22:18 Temperature 98.3 F 98.6 F Pulse Rate 87 85 Respiratory 20 18 20 Rate Blood Pressure 98/57 102/53 (mmHg) O2 Sat by Pulse 96 93 Oximetry 09/08/16 09/08/16 07:47 09:26 Temperature 98.1 F Pulse Rate 86 Respiratory 16 18 Rate Blood Pressure 125/89 (mmHg) O2 Sat by Pulse 94 Oximetry Oxygen Devices in Use Now: None Appearance: Middle-aged, obese, M, sitting in chair in NAD Eyes: No Scleral Icterus Ears/Nose/Mouth/Throat: Mucous Membranes Moist Neck: NL Appearance and Movements; NL JVP Respiratory: Symmetrical Chest Expansion and Respiratory Effort, - - Diminished BS in bases Cardiovascular: NL Sounds; No Murmurs; No JVD, RRR Abdominal: NL Sounds; No Tenderness; No Distention Lymphatic: No Cervical Adenopathy Extremities: - - B/L LE edema, R>L, erythema and tenderness from R foot to below the knee Neurological: Alert and Oriented x 3 Result Diagrams: 09/08/16 05:09 09/06/16 22:30 Additional Lab and Data: Lab Results 09/06/16 09/06/16 09/06/16 Range/Units 22:30 22:30 22:30 WBC 12.8 H (3.5-10.8) 10^3/ul RBC 4.29 (4.0-5.4) 10^6/ul Hgb 13.0 L (14.0-18.0) g/dl Hct 39 L (42-52) % MCV 92 (80-94) fL MCH 30 (27-31) pg MCHC 33 (31-36) g/dl RDW 14 (10.5-15) % Plt Count 192 (150-450) 10^3/ul MPV 9 (7.4-10.4) um3 Neut % (Auto) 83.0 (38-83) % Lymph % (Auto) 7.9 L (25-47) % [place] % (Auto) 8.4 (1-9) % Eos % (Auto) 0.2 (0-6) % Baso % (Auto) 0.5 (0-2) % Absolute Neuts (auto) 10.6 H (1.5-7.7) 10^3/ul Absolute Lymphs (auto) 1.0 (1.0-4.8) 10^3/ul Absolute Monos (auto) 1.1 H (0-0.8) 10^3/ul Absolute Eos (auto) 0 (0-0.6) 10^3/ul Absolute Basos (auto) 0.1 (0-0.2) 10^3/ul Absolute Nucleated RBC 0 10^3/ul Nucleated RBC % 0 Sodium 132 L (133-145) mmol/L Potassium 3.7 (3.5-5.0) mmol/L Chloride 102 (101-111) mmol/L Carbon Dioxide 23 (22-32) mmol/L Anion Gap 7 (2-11) mmol/L BUN 19 (6-24) mg/dL Creatinine 1.45 H (0.67-1.17) mg/dL Est GFR ( Amer) 63.4 (>60) Est GFR (Non-Af Amer) 49.3 (>60) BUN/Creatinine Ratio 13.1 (8-20) Glucose 178 H (70-100) mg/dL Calcium 8.8 (8.6-10.3) mg/dL Total Bilirubin 1.50 H (0.2-1.0) mg/dL AST 32 (13-39) U/L ALT 20 (7-52) U/L Alkaline Phosphatase 60 (34-104) U/L B-Natriuretic Peptide 172 H ( - 100) pg/mL Total Protein 7.0 (6.4-8.9) g/dL Albumin 3.2 (3.2-5.2) g/dL Globulin 3.8 (2-4) g/dL Albumin/Globulin Ratio 0.8 L (1-3) Assess/Plan/Problems-Billing Assessment: RLE cellulitis in a 60 yo M with hx of HTN, HLD, DM, CAD, chronic diastolic CHF , CKD3, pAF - Patient Problems (1) Cellulitis Current Visit: No Comment: RLE. Significant tenderness and erythema limiting mobility. WBC normalized. Continue IV Ancef. Keep extremities elevated as much as possible. I wonder if he may have a component of lipodermatosclerosis, consider compression stockings once he is able to tolerate (2) Atrial fibrillation Current Visit: No Comment: Paroxysmal. Continue Metoprolol. Not on AC due to h /o hemorrhagic CVA (3) CKD stage 3 due to type 2 diabetes mellitus Current Visit: No Comment: Stable, creatinine at baseline (4) Neuropathic pain Current Visit: No Comment: Due to DM cont gabapentin (5) CAD (coronary artery disease) Current Visit: No Comment: Cath in 2013 showed moderate disease. Continue ASA, beta-xavier and statin (6) DM type 2 (diabetes mellitus, type 2) Current Visit: No Comment: Continue home Linagliptin, Lantus 70 units qhs. HbgA1c 7.0% in 07/2016 (7) Chronic diastolic (congestive) heart failure Current Visit: No Comment: No acute exacerbation Continue home dose of Lasix (8) DVT prophylaxis Current Visit: No Comment: HSQ Status and Disposition: Inpatient for IV ABx, may need ISABEL
[2016-09-08] MEDS: oxyCODONE TAB* 5 MG TAB PO PRN ×2 (14:13→21:47)
[2016-09-08] MEDS: Tamsulosin CAP* 0.4 MG PO SCH (18:10)
[2016-09-08] MEDS: Insulin GLARGINE(*) 1 UNITS UNIT SUBCUT SCH (21:44)
[2016-09-08] MEDS: Atorvastatin* 20 MG TAB PO SCH (21:46)
[2016-09-09] MEDS: Heparin VIAL(*) 5000 UNITS/ML VIAL (FIVE THOUSAND) SUBCUT SCH ×3 (05:44→20:49)
[2016-09-09] MEDS: ceFAZolin VIAL(*) 1 GM in NS 0.9% 50 ML* 50 ML IVPB SCH ×3 (05:44→20:49)
[2016-09-09] MEDS: Sertraline* 100 MG TAB PO SCH ×2 (08:36→20:33)
[2016-09-09] MEDS: Gabapentin CAP(*) 100 MG PO SCH ×2 (08:36→20:32)
[2016-09-09] MEDS: Aspirin Low Dose CHEW TAB* 81 MG PO SCH (08:37)
[2016-09-09] MEDS: amLODIPine TAB* 5 MG PO SCH (08:37)
[2016-09-09] MEDS: hydrALAZINE TAB* 25 MG PO SCH ×3 (08:38→20:33)
[2016-09-09] MEDS: Metoprolol Tartrate TAB* 100 MG TAB PO SCH ×2 (08:38→20:34)
[2016-09-09] MEDS: Furosemide TAB* 40 MG PO SCH (08:38)
[2016-09-09] MEDS: oxyCODONE TAB* 5 MG TAB PO PRN ×3 (08:38→20:34)
[2016-09-09] MEDS: ISOSORBIDE MONONITRATE 20 MG PO SCH ×2 (08:39→20:34)
[2016-09-09] MEDS: LINAGLIPTIN 5 MG PO SCH (10:07)
[2016-09-09] MEDS ORDERED: Acetaminophen TAB* 325 MG PO PRN (10:33)
--- NOTE | 2016-09-09 15:01 | PN ---
Subjective Date of Service: 09/09/16 Interval History: Leg is still painful. Worse when standing. Has not used compression stockings but is not averse to them Family History: Unchanged from Admission Social History: Unchanged from Admission Past Medical History: Unchanged from Admission Objective Active Medications: Acetaminophen (Tylenol Tab*) 650 mg PO Q6H PRN PRN Reason: PAIN Amlodipine Besylate (Norvasc Tab*) 5 mg PO DAILY [facility] Last Admin: 09/09/16 08:37 Dose: 5 mg Aspirin (Aspirin Low Dose Tab*) 81 mg PO DAILY [facility] Last Admin: 09/09/16 08:37 Dose: 81 mg Atorvastatin Calcium (Lipitor*) 20 mg PO BEDTIME [facility] Last Admin: 09/08/16 21:46 Dose: 20 mg Furosemide (Lasix Tab*) 40 mg PO DAILY [facility] Last Admin: 09/09/16 08:38 Dose: 40 mg Gabapentin (Neurontin Cap(*)) 200 mg PO BID [facility] Last Admin: 09/09/16 08:36 Dose: 200 mg Heparin Sodium (Porcine) (Heparin Vial(*)) 5,000 units SUBCUT Q8HR [facility] Last Admin: 09/09/16 13:59 Dose: 5,000 units Hydralazine HCl (Apresoline Tab*) 25 mg PO TID [facility] Last Admin: 09/09/16 13:59 Dose: 25 mg Cefazolin Sodium 1 gm/ Sodium (Chloride) 50 mls @ 200 mls/hr IVPB Q8H [facility] Last Admin: 09/09/16 13:53 Dose: 200 mls/hr Insulin Glargine (Lantus(*)) 70 units SUBCUT Q24H [facility] Last Admin: 09/08/16 21:44 Dose: 70 units Isosorbide Mononitrate (Isosorbide Mononitrate (Nf)) 20 mg PO BID [facility] PRN Reason: Protocol Last Admin: 09/09/16 08:39 Dose: 20 mg Linagliptin (Tradjenta (Nf)) 5 mg PO DAILY [facility] Last Admin: 09/09/16 10:07 Dose: Not Given Metoprolol Tartrate (Lopressor Tab*) 100 mg PO BID [facility] Last Admin: 09/09/16 08:38 Dose: 100 mg Oxycodone HCl (Roxycodone Tab*) 5 mg PO Q4H PRN PRN Reason: PAIN Last Admin: 09/09/16 13:58 Dose: 5 mg Sertraline HCl (Zoloft*) 100 mg PO BID [facility] Last Admin: 09/09/16 08:36 Dose: 100 mg Tamsulosin HCl (Flomax Cap*) 0.4 mg PO QPM [facility] Last Admin: 09/08/16 18:10 Dose: 0.4 mg Vital Signs 09/08/16 09/08/16 09/08/16 15:32 16:13 19:52 Temperature 97.9 F 97.3 F Pulse Rate 82 79 Respiratory 18 16 16 Rate Blood Pressure 118/73 103/54 (mmHg) O2 Sat by Pulse 96 96 Oximetry 09/08/16 09/08/16 09/08/16 20:00 20:08 21:46 Temperature 97.6 F Pulse Rate 76 Respiratory 19 18 20 Rate Blood Pressure 100/43 (mmHg) O2 Sat by Pulse 94 Oximetry 09/08/16 09/08/16 09/08/16 21:47 22:16 22:23 Temperature Pulse Rate 87 72 Respiratory 20 Rate Blood Pressure 106/48 113/54 (mmHg) O2 Sat by Pulse Oximetry 09/08/16 09/08/16 09/08/16 23:46 23:47 23:51 Temperature 97.8 F Pulse Rate 77 Respiratory 19 19 17 Rate Blood Pressure 138/92 (mmHg) O2 Sat by Pulse 93 Oximetry 09/09/16 09/09/16 09/09/16 03:48 07:14 08:00 Temperature 98.1 F Pulse Rate 82 56 Respiratory 20 16 18 Rate Blood Pressure 118/75 127/69 (mmHg) O2 Sat by Pulse 94 87 Oximetry 09/09/16 09/09/16 09/09/16 08:36 08:38 09:54 Temperature Pulse Rate Respiratory 18 18 20 Rate Blood Pressure (mmHg) O2 Sat by Pulse Oximetry 09/09/16 09/09/16 10:29 13:58 Temperature Pulse Rate Respiratory 16 18 Rate Blood Pressure (mmHg) O2 Sat by Pulse Oximetry Oxygen Devices in Use Now: None Appearance: obese, lying in bed, NAD Eyes: No Scleral Icterus, PERRLA Ears/Nose/Mouth/Throat: Clear Oropharnyx, Mucous Membranes Moist Neck: NL Appearance and Movements; NL JVP, Trachea Midline Respiratory: Symmetrical Chest Expansion and Respiratory Effort, Clear to Auscultation Cardiovascular: RRR Abdominal: NL Sounds; No Tenderness; No Distention, No Hepatosplenomegaly Lymphatic: No Cervical Adenopathy Extremities: - - 2+ pitting LE edema Skin: - - right LE erythema from ankle to 6inches below knee, left with chronic venous stasis changes Neurological: Alert and Oriented x 3 Result Diagrams: 09/08/16 05:09 09/06/16 22:30 Additional Lab and Data: Lab Results 09/06/16 09/06/16 09/06/16 Range/Units 22:30 22:30 22:30 WBC 12.8 H (3.5-10.8) 10^3/ul RBC 4.29 (4.0-5.4) 10^6/ul Hgb 13.0 L (14.0-18.0) g/dl Hct 39 L (42-52) % MCV 92 (80-94) fL MCH 30 (27-31) pg MCHC 33 (31-36) g/dl RDW 14 (10.5-15) % Plt Count 192 (150-450) 10^3/ul MPV 9 (7.4-10.4) um3 Neut % (Auto) 83.0 (38-83) % Lymph % (Auto) 7.9 L (25-47) % [place] % (Auto) 8.4 (1-9) % Eos % (Auto) 0.2 (0-6) % Baso % (Auto) 0.5 (0-2) % Absolute Neuts (auto) 10.6 H (1.5-7.7) 10^3/ul Absolute Lymphs (auto) 1.0 (1.0-4.8) 10^3/ul Absolute Monos (auto) 1.1 H (0-0.8) 10^3/ul Absolute Eos (auto) 0 (0-0.6) 10^3/ul Absolute Basos (auto) 0.1 (0-0.2) 10^3/ul Absolute Nucleated RBC 0 10^3/ul Nucleated RBC % 0 Sodium 132 L (133-145) mmol/L Potassium 3.7 (3.5-5.0) mmol/L Chloride 102 (101-111) mmol/L Carbon Dioxide 23 (22-32) mmol/L Anion Gap 7 (2-11) mmol/L BUN 19 (6-24) mg/dL Creatinine 1.45 H (0.67-1.17) mg/dL Est GFR ( Amer) 63.4 (>60) Est GFR (Non-Af Amer) 49.3 (>60) BUN/Creatinine Ratio 13.1 (8-20) Glucose 178 H (70-100) mg/dL Calcium 8.8 (8.6-10.3) mg/dL Total Bilirubin 1.50 H (0.2-1.0) mg/dL AST 32 (13-39) U/L ALT 20 (7-52) U/L Alkaline Phosphatase 60 (34-104) U/L B-Natriuretic Peptide 172 H ( - 100) pg/mL Total Protein 7.0 (6.4-8.9) g/dL Albumin 3.2 (3.2-5.2) g/dL Globulin 3.8 (2-4) g/dL Albumin/Globulin Ratio 0.8 L (1-3) Assess/Plan/Problems-Billing Assessment: RLE cellulitis in a 60 yo M with hx of HTN, HLD, DM, CAD, chronic diastolic CHF , CKD3, pAF - Patient Problems (1) Cellulitis Comment: RLE with continued tenderness and erythema limiting mobility. Continue IV Ancef. Elevated extremities LE compression stockings. Consideration for lipodermatosclerosis (2) Acute diastolic CHF (congestive heart failure) Comment: e/o vascular congestion on initial CXR associated with increased SOB, orthopnea and LE swelling, repeat CXR without much vascular congestion Lasix 40mg, recheck BMP in AM (3) Atrial fibrillation Comment: Paroxysmal. Continue Metoprolol. Not on AC due to h/o hemorrhagic CVA (4) Chronic diastolic (congestive) heart failure Comment: No acute exacerbation Continue home dose of Lasix (5) DM type 2 (diabetes mellitus, type 2) Comment: Continue home Linagliptin, Lantus 70 units qhs. HbgA1c 7.0% in 07/2016 (6) Neuropathic pain Comment: Due to DM cont gabapentin (7) DVT prophylaxis Comment: HSQ Status and Disposition: Inpatient for IV ABx, ISABEL evaluation
[2016-09-09] MEDS: Tamsulosin CAP* 0.4 MG PO SCH (18:08)
[2016-09-09] MEDS: Atorvastatin* 20 MG TAB PO SCH (20:32)
[2016-09-09] MEDS: Insulin GLARGINE(*) 1 UNITS UNIT SUBCUT SCH (20:49)
[2016-09-10 05:12] LABS: Hematocrit 36 % (42-52); Mean Corpuscular HGB Conc 33 g/dl (31-36); Mean Corpuscular Hemoglobin 30 pg (27-31); Mean Corpuscular Volume 92 fL (80-94); Mean Platelet Volume 9 um3 (7.4-10.4); Red Blood Count 3.96 10^6/ul (4.0-5.4); Red Cell Distribution Width 15 % (10.5-15); White Blood Count 7.3 10^3/ul (3.5-10.8)
[2016-09-10 05:23] LABS: BUN/Creatinine Ratio 18.8 (8-20); Calcium 8.6 mg/dL (8.6-10.3); EGFR African American 67.1 (>60); EGFR Non-African American 52.2 (>60); Potassium 4.1 mmol/L (3.5-5.0)
[2016-09-10] MEDS: Heparin VIAL(*) 5000 UNITS/ML VIAL (FIVE THOUSAND) SUBCUT SCH ×2 (06:06→15:07)
[2016-09-10] MEDS: ceFAZolin VIAL(*) 1 GM in NS 0.9% 50 ML* 50 ML IVPB SCH ×2 (06:06→15:07)
[2016-09-10] MEDS: oxyCODONE TAB* 5 MG TAB PO PRN ×2 (06:11→10:38)
[2016-09-10] MEDS: LINAGLIPTIN 5 MG PO SCH (08:20)
[2016-09-10] MEDS: Gabapentin CAP(*) 100 MG PO SCH (08:22)
[2016-09-10] MEDS: ISOSORBIDE MONONITRATE 20 MG PO SCH (08:22)
[2016-09-10] MEDS: Aspirin Low Dose CHEW TAB* 81 MG PO SCH (08:23)
[2016-09-10] MEDS: Metoprolol Tartrate TAB* 100 MG TAB PO SCH (08:23)
[2016-09-10] MEDS: Sertraline* 100 MG TAB PO SCH (08:23)
[2016-09-10] MEDS: hydrALAZINE TAB* 25 MG PO SCH ×2 (08:24→14:08)
[2016-09-10] MEDS: amLODIPine TAB* 5 MG PO SCH (08:24)
[2016-09-10] MEDS: Furosemide TAB* 40 MG PO SCH (08:24)
[2016-09-10 11:52] VITALS: BP 109/58
--- NOTE | 2016-09-10 14:02 | DS ---
CC: Dr. Chapman * DATE OF ADMISSION: 09/06/2016. DATE OF DISCHARGE: 09/10/2016. PRIMARY CARE PHYSICIAN: Dr. Chapman. PRIMARY DIAGNOSIS: Cellulitis. SECONDARY DIAGNOSES: 1. Atrial fibrillation. 2. Acute diastolic heart failure exacerbation. 3. Type 2 diabetes. 4. Neuropathic pain. 5. Morbid obesity. 6. Hypertension. MEDICATIONS ON DISCHARGE: 1. Hydralazine 25 mg three times a day. 2. Norvasc 5 mg daily. 3. Amlodipine 5 mg daily. 4. Flomax 0.4 mg in the evening. 5. Zoloft 100 mg twice daily. 6. Metoprolol Tartrate 100 mg twice daily. 7. Tradjenta 5 mg daily. 8. Isosorbide mononitrate 20 mg twice daily. 9. Tresiba Flexpen 70 units subcutaneously at bedtime. 10. Gabapentin 200 mg twice daily. 11. Lasix 40 mg daily. 12. Lipitor 20 mg at bedtime. 13. Aspirin 81 mg daily. 14. Acetaminophen 1000 mg four times daily as needed. 15. Oxycodone 5 mg every 4 hours as needed for pain for the next week. 16. Keflex 500 mg four times a day for an additional 12 days. PERTINENT LABORATORY DATA: White blood cell count on presentation 12.8, on discharge 7.3. Creatinine on presentation 1.4, on discharge 1.38. Creatinine clearance 69.0. Meds dosed accordingly. PERTINENT MICROBIOLOGY: None. HISTORY OF PRESENT ILLNESS AND HOSPITAL COURSE: This is a 60-year-old man with a past medical history as outlined in the history of present illness on the day of admission who presented to the hospital with right lower extremity pain and erythema. The patient was admitted to the hospital and treated for cellulitis of the right lower extremity in the setting of lower extremity swelling secondary to acute diastolic heart failure exacerbation as well as skin breakdown and chronic venous stasis change. He was treated with Cefazolin with decrease in the erythema, resolution of his white blood cell count and absence of fevers. He will be transitioned to Keflex for an additional 12 days of prolonged course of antibiotics on discharge. Secondary to his deconditioning, he will be discharged to [facility] for continued physical therapy and rehabilitation. There were no complications during the course of this hospital stay. The patient is discharged on his usual dose of Lasix as well as antidiabetic medications. AT FOLLOW-UP, PLEASE: 1. Follow-up improvement in right lower extremity cellulitis. Erythema is currently approximately 6 inches below his right knee, circumferential down through his foot. 2. Follow for continued diabetic control. 3. Follow for continued blood pressure control. 4. No other specific labs or vitals that need follow-up. REASONS TO RETURN TO THE HOSPITAL: Including, but not limited to recurrent or worsening symptoms, worsening swelling or erythema, pain, fevers, chills, night sweats, chest pain, shortness of breath, nausea, vomiting, lightheadedness, loss of consciousness, inability to obtain or tolerate his medications were discussed with the patient, he acknowledged understanding. Greater than 45 minutes were spent in the discharge of this patient, greater than half was spent [id number] with the patient. [id number]/[facility] [place] #: [id number] MTDD
== END 2016-09-10 15:15 | DRG 602 ==
LOC: ED 21:59 → MED 09-07 00:51
PROVIDERS: ADMIT Hospitalist; ATTEND Internal Medicine
DX: L03.115 Cellulitis of right lower limb (principal); I50.33 Acute on chronic diastolic (congestive) heart failure; E11.22 Type 2 diabetes mellitus with diabetic chronic kidney disease; E11.42 Type 2 diabetes mellitus with diabetic polyneuropathy; I13.0 Hypertensive heart and chronic kidney disease with heart failure and stage 1 through stage 4 chronic kidney disease, or unspecified chronic kidney disease; Z68.43 Body mass index [BMI] 50.0-59.9, adult; I25.10 Atherosclerotic heart disease of native coronary artery without angina pectoris; E78.00 Pure hypercholesterolemia, unspecified; N40.0 Benign prostatic hyperplasia without lower urinary tract symptoms; F41.9 Anxiety disorder, unspecified; F32.9 Major depressive disorder, single episode, unspecified; Z96.652 Presence of left artificial knee joint; E66.01 Morbid (severe) obesity due to excess calories; E78.5 Hyperlipidemia, unspecified; I48.0 Paroxysmal atrial fibrillation; N18.3 Chronic kidney disease, stage 3 (moderate); I87.8 Other specified disorders of veins; G47.33 Obstructive sleep apnea (adult) (pediatric); I25.2 Old myocardial infarction; Z82.49 Family history of ischemic heart disease and other diseases of the circulatory system; Z88.8 Allergy status to other drugs, medicaments and biological substances; Z91.041 Radiographic dye allergy status; Z86.711 Personal history of pulmonary embolism; Z86.73 Personal history of transient ischemic attack (TIA), and cerebral infarction without residual deficits; Z83.3 Family history of diabetes mellitus; Z79.82 Long term (current) use of aspirin
CPT/HCPCS: 36415; 80048; 80053; 83880; 85025; 97530; A9270-GY; J0690; J1644

== ENCOUNTER 2016-09-23 18:04 | Inpatient (IN) | payer MEDICARE ==
[2016-09-23] MEDS ORDERED: Nitroglycerin 2% OINT* 1 GM PAK TOPICAL ONE (19:38)
--- NOTE | 2016-09-23 20:00 | RAD ---
HISTORY: Chest pain COMPARISONS: August 01, 2016 VIEWS:1: Single frontal portable view of the chest at 7:56 PM FINDINGS: LINES AND TUBES: None. CARDIOMEDIASTINAL SILHOUETTE: The cardiac silhouette is enlarged. The cardiomediastinal silhouette is otherwise normal for portable technique. PLEURA: The costophrenic angles are sharp. No pleural abnormalities are noted. LUNG PARENCHYMA: There is a diffuse reticular pattern with indistinct pulmonary vessels. ABDOMEN: The upper abdomen is clear. There is no subphrenic gas. BONES AND SOFT TISSUES: No bone or soft tissue abnormalities are noted. IMPRESSION: CARDIOMEGALY WITH PULMONARY INTERSTITIAL EDEMA
[2016-09-23 20:42] LABS: PCO2 Arterial 44 mmHg (35-45)
--- NOTE | 2016-09-23 20:49 | RAD ---
HISTORY: Right lower extremity pain and edema COMPARISONS: September 06, 2016 TECHNIQUE: Multiple transverse and longitudinal ultrasound images were obtained of the right lower extremity from the level of the common femoral vein inferiorly through to the infrapopliteal veins using grayscale, color Doppler, and spectral Doppler imaging with and without compression and with augmentation. Comparison images were obtained of the contralateral common femoral vein. FINDINGS: The study is limited by patient body habitus.. There is suboptimal visualization of the calf veins and the greater saphenous vein. VEINS: The venous system of the right lower extremity is compressible throughout its course, with normal flow on color Doppler imaging and normal response to augmentation on spectral Doppler imaging. SOFT TISSUES: Unremarkable. OTHER FINDINGS: None. IMPRESSION: LIMITED STUDY. WITHIN THE LIMITATIONS OF THE STUDY, THERE IS NO RIGHT LOWER EXTREMITY DEEP VEIN THROMBOSIS
[2016-09-23 21:00] LABS: Hematocrit 42 % (42-52); Hemoglobin 13.6 g/dl (14.0-18.0); Mean Corpuscular HGB Conc 33 g/dl (31-36); Mean Corpuscular Hemoglobin 30 pg (27-31); Mean Corpuscular Volume 92 fL (80-94); Mean Platelet Volume 8 um3 (7.4-10.4); Red Blood Count 4.55 10^6/ul (4.0-5.4); Red Cell Distribution Width 15 % (10.5-15); White Blood Count 8.5 10^3/ul (3.5-10.8)
[2016-09-23 21:17] LABS: Troponin I 0.01 ng/mL (<0.04)
[2016-09-23 21:21] LABS: ALT 25 U/L (7-52); AST 28 U/L (13-39); Albumin 3.6 g/dL (3.2-5.2); Alkaline Phosphatase 82 U/L (34-104); Anion Gap 6 mmol/L (2-11); BUN/Creatinine Ratio 14.4 (8-20); Blood Urea Nitrogen 19 mg/dL (6-24); CO2 Carbon Dioxide 27 mmol/L (22-32); Calcium 9.4 mg/dL (8.6-10.3); Chloride 103 mmol/L (101-111); EGFR African American 70.7 (>60); Glucose 93 mg/dL (70-100); Magnesium 1.9 mg/dL (1.9-2.7); Potassium 4.1 mmol/L (3.5-5.0); Sodium 136 mmol/L (133-145); Total Protein 7.6 g/dL (6.4-8.9)
[2016-09-24 00:32] LABS: Acetaminophen < 15 mcg/mL; Alcohol < 10 mg/dL (<10); Salicylate < 2.50 mg/dL (<30)
[2016-09-24] MEDS: Gabapentin CAP(*) 100 MG PO SCH ×2 (03:46→09:07)
[2016-09-24] MEDS: Sertraline* 100 MG TAB PO SCH ×2 (03:46→09:05)
--- NOTE | 2016-09-24 04:16 | CONS ---
CC: Dr. Bryn Chapman; [facility] * CONSULTATION REPORT: DATE OF CONSULT: 09/23/16 PRIMARY CARE PROVIDER: Dr. Bryn Chapman. ATTENDING PHYSICIAN: Dr. Rogelio Hernandez (dictated by Cherise Hurd NP) CHIEF COMPLAINT: Headache, chest pain and shortness of breath. HISTORY OF PRESENT ILLNESS: Mr. Corrales is a 60-year-old male with past medical history significant for morbid obesity, diabetes, hypertension, CAD, hyperlipidemia, CKD, paroxysmal atrial fibrillation, and history of intracranial hemorrhage who presents to the emergency room with complaints of headache starting today, chest pain and shortness of breath. The patient has been living at [facility] since September 10. The patient states that his headache started at approximately 4:30 today. He reports having a history of intermittent headaches. He feels that this one is similar to his typical headaches. It is in the same location. He denies any lightheadedness or dizziness. He states that he has been having blurry vision for a few years. The patient has not taken anything for his headache today. The patient is also complaining of chest pain. When enquired further, the patient states that this chest pain is his typical chest pain. The patient also is complaining of shortness of breath, and when asked he states that he is at his baseline shortness of breath. The patient also reports some intermittent nausea today, and denies any dysuria, fevers. Does report intermittent chills. Based off of the patient's symptoms, he was sent from [facility] to the emergency room for further evaluation of his symptoms. While in the emergency room, the patient was also complaining of right lower extremity pain. He had a venous Doppler study showing a limited study within the limits of the study. There was no right lower extremity deep vein thrombosis noted. He had a chest x-ray showing cardiomegaly with pulmonary interstitial edema. The patient also had an EKG showing atrial fibrillation with a rate of 78. No acute signs of ischemia. The patient had labs that were unremarkable. He had a troponin of 0.01. His creatinine was elevated, but it is baseline. He had a D- dimer of 332, which was less than his previous D- dimer. Due to the patient's IODINE ALLERGY, he did not undergo a CT of his chest on this presentation to the emergency room. While in the emergency room, the patient received some Nitro paste which he felt may have decreased some of his chest pain. During the patient's time in the emergency room, he also expressed to the nurses how he wanted to "lay down and ." Upon further discussion with the patient, he has no active suicidal plan or intentions. Hospitalists were asked to evaluate the patient for consultation. PAST MEDICAL HISTORY: 1. Paroxysmal atrial fibrillation. 2. Diabetes mellitus. 3. Peripheral neuropathy. 4. Chronic kidney disease, stage 3. 5. History of coronary artery disease and status post myocardial infarction. 6. Chronic diastolic heart failure. 7. History of intracranial hemorrhage. 8. Hypertension. 9. Hyperlipidemia. 10. Obstructive sleep apnea, intolerant of CPAP. 11. Benign prostatic hypertrophy. 12. Depression. 13. Morbid obesity, BMI 49.5. PAST SURGICAL HISTORY: 1. Status post right knee arthroscopy. 2. Status post left total knee arthroplasty. 3. Status post vein stripping. HOME MEDICATIONS: Include: 1. Acetaminophen 1000 mg oral every 8 hours as needed for pain. 2. Amlodipine 5 mg oral daily. 3. Flomax 0.4 mg oral daily at bedtime. 4. Gabapentin 200 mg oral twice daily. 5. Hydralazine 25 mg oral three times daily. 6. Isosorbide mononitrate 20 mg oral twice daily. 7. Lasix 40 mg oral daily. 8. Lipitor 20 mg oral daily. 9. Metoprolol Tartrate 100 mg oral twice daily. 10. Oxycodone 5 mg oral every 4 hours as needed for pain. 11. Vitamin D 50,000 units oral daily for one month. 12. Zoloft 100 mg oral twice daily. 13. Tresiba insulin 70 units subcutaneous at bedtime daily. ALLERGIES: IODINE CONTRAST. FAMILY HISTORY: The patient reports that a brother and a sister passed in their , what he believes, was 50s from myocardial infarctions. The patient had a sister with a history of diabetes mellitus. He denies any family history of cancer. SOCIAL HISTORY: The patient denies tobacco, alcohol or recreational drug use. The patient currently lives at [facility]. He is disabled. His mother, Suzanne Pizano will be his surrogate decision maker in the event he is unable to make decisions for himself. REVIEW OF SYSTEMS: I performed a 14-point review of systems. All the pertinent positives and negatives are mentioned in the history of present illness. The remaining review of systems is negative. PHYSICAL EXAMINATION: Vital Signs: Temperature 98, heart rate 71, respiratory rate 13, O2 sat 95% on O2 4 liters via nasal cannula, blood pressure 145/83. General Appearance: The patient is alert, pleasant, appears to be in no acute distress. HEENT: Normocephalic, atraumatic. Pupils are equal and reactive to light. Extraocular movements are intact. Respiratory: There is no accessory muscle use, and lungs are clear to auscultation bilateral but diminished. Cardio -vascular: Regular rate and rhythm. S1 and S2 present. There are no murmurs, rubs, or gallops heard. Abdomen: Large, soft, nontender, nondistended. There are bowel sounds present x4. Extremities: There is 1 to 2+ bilateral lower extremity edema. Musculoskeletal: The patient has chest pain that is reproducible to palpation to his sternum. Moves all extremities. Neurologic: The patient is alert and oriented x4. Cranial nerves II through XII are grossly intact. Psychological: The patient is calm and cooperative. Skin: The patient has chronic skin changes from lymphedema to bilateral lower extremities. DIAGNOSTIC STUDIES/LAB DATA: Sodium 136, potassium 4.1, chloride 103, CO2 27, BUN 19, creatinine 1.32, glucose 91, troponin 0.01, BNP 183. D-dimer 332. White blood cell count 8.5, hemoglobin 13.6, hematocrit 40.2, platelet count 248. EKG shows an atrial fibrillation with a rate of 78. There are no acute signs of ischemia. This EKG is similar to previous EKG from 08/01/16. The patient does have some diffuse ST changes. Chest x-ray from today. Radiologist impression: Cardiomegaly with pulmonary interstitial edema. Right lower extremity venous Doppler from today. Radiologist impression: Limited study. Within the limits of the study, there is no right lower extremity deep vein thrombosis. IMPRESSION: Mr. Corrales is a 60-year-old male with a past medical history significant for morbid obesity, hypertension, hyperlipidemia, coronary artery disease status post RI, morbid obesity, chronic kidney disease, paroxysmal atrial fibrillation, and history of intracranial hemorrhage who presents to the emergency room with complaints of burning pain in his right lower extremity and increased pain with standing, in addition to headache, chest pain, shortness of breath. Hospitalists were asked to consult on this patient regarding possible admission. ASSESSMENT AND PLAN: 1. Chest pain. This appears to be the patient's chronic chest pain. It is reproducible with palpation. I suspect it could be musculoskeletal in relation. The patient last had a stress test in October 2015. The patient reports that he has a follow-up appointment previously scheduled with Dr. Beth Gudino next month. The patient's troponin is negative. He has no concerning findings on his EKG. The patient's pain is reproducible with palpation. I do not believe that this pain is cardiac in nature. 2. Headache. The patient states that this is his typical headache. He should take Tylenol as needed for his headache. 3. Shortness of breath. The patient's shortness of breath is at baseline. I suspect this is related to his obesity and poor body habitus. 4. Right lower extremity pain. The patient describes a burning pain, worse with standing. He had a venous Doppler study that was negative for a DVT. The patient does not have an elevated white count. He should continue to see physical therapy at [facility]. Some of the patient's discomfort may be due to swelling in his legs from his chronic lymphedema. 5. History of paroxysmal atrial fibrillation. The patient should be continued on his home metoprolol. It is noted that he is not currently anticoagulated. 6. Diabetes mellitus. The patient should be continued on his home insulin. 7. History of coronary artery disease and myocardial infarction. The patient should be continued on his home isosorbide, metoprolol and atorvastatin. I would consider placing the patient on aspirin. 8. Chronic kidney disease, stage 3. The patient just needs periodic monitoring. 9. Chronic diastolic heart failure. The patient should be continued on his home furosemide, in addition to a low-sodium diet and weight monitoring. I recommend rechecking his weight a few times a week. 10. Chronic lymphedema. The patient should have his compression stockings. If he is unable to get compression stockings, I recommend wrapping his lower extremities to help with the fluid. 11. Hyperlipidemia. The patient will be continued on his home atorvastatin. 12. Hypertension. The patient will be continued on his home furosemide, metoprolol, hydralazine, and amlodipine. 13. Benign prostatic hypertrophy. The patient will be continued on his home tamsulosin. 14. Depression. The patient will be continued on his home sertraline. The patient is currently having some passive suicidal ideations. He should undergo a mental health evaluation prior to his discharge back to [facility]. If the patient is deemed safe for discharge tonight, he should follow up with some kind of outpatient counselling or psychiatry to assist with his depression. 15. Fluids, electrolytes, and nutrition. The patient should be on a consistent carbohydrate, heart-healthy diet. 16. Code status. Do not resuscitate. The patient has a MOLST on file. 17. Disposition: The patient will be discharged from the emergency room pending mental health evaluation and clearance. TIME SPENT: Time for this consultation was approximately 60 minutes; greater than half the time was spent with the patient discussing past medical history, medications, and the events leading up to his arrival today, and performing a physical examination. The case has been reviewed with the attending doctor, Dr. Hernandez, who agrees with the plan of care. Reviewed by CARLOS MANUEL PARK 09/24/16 1202 [id number]/[facility] #: [id number] DEVIKA
--- NOTE | 2016-09-24 04:20 | ED ---
Kinga Daniel Rebecca, scribed for David Diaz on 09/23/16 at 1929 . Headache - HPI Summary HPI Summary: Pt is a 60 y/o M BIBA who presents to ED c/o diffuse IQBAL. IQBAL began earlier today at 1700 and has been constant since onset. On triage, IQBAL was noted to be severe , ranked 9/10. Additionally c/o acute on chronic CP, right calf tenderness and nausea. Pt reports he experiences CP "all the time," typically ranked 5/10, but today it is 7-8/10. Sx aggravated and alleviated by nothing. Denies abdominal pain, vomiting and dizziness. Notes that he had a recent Dx of cellulitis in the RLE for which he has been on Abx for 14 days, without improvement of sx. PMHx NE, CVA and TIA. Last stress test was "a while" ago. PSHx cardiac catheterization 3-4 years ago. Doppler study of the RLE done on 09/06/16 with no acute findings. - History Of Current Complaint Chief Complaint: EDHeadache Stated Complaint: CHEST PAIN Time Seen by Provider: 09/23/16 19:20 Hx Obtained From: Patient Onset/Duration: Started hours ago, Still Present Currently Pain Is: Current Pain Scale(0-10)= - 9/10, Severe Timing: Constant Location of Headache: Diffuse Aggravating Factor: Nothing Allevating Factors: Nothing Associated Signs And Symptoms: Nausea, Other (Noted In Comments) - CP, R calf tenderness - Allergies/Home Medications Allergies/Adverse Reactions: Allergies Allergy/AdvReac Type Severity Reaction Status Date / Time Iodinated Diagnostic Agents Allergy See Comment Verified 09/06/16 22:15 IVP dye Allergy seizure Uncoded 09/06/16 22:15 Home Medications: Home Medications Oxycodone HCl [Oxaydo] 5 mg PO Q4HR 09/23/16 [History Confirmed 09/23/16] PMH/Surg Hx/FS Hx/Imm Hx Endocrine/Hematology History: Reports: Hx Diabetes Cardiovascular History: Reports: Hx Angina, Hx Congestive Heart Failure, Hx Coronary Artery Disease, Hx Embolism - PE, Hx Hypercholesterolemia - HLD, Hx Hypertension, Hx Myocardial Infarction, Hx Syncope - This admission, Other Cardiovascular Problems/Disorders - STROKE Respiratory History: Reports: Hx Pulmonary Embolism, Hx Sleep Apnea - current CPAP user. History: Reports: Hx Benign Prostatic Hyperplasia Musculoskeletal History: Reports: Hx Arthritis - LEFT KNEE FOR YEARS Sensory History: Denies: Hx Contacts or Glasses, Hx Hearing Aid Opthamlomology History: Denies: Hx Contacts or Glasses Neurological History: Reports: Hx CVA, Hx Transient Ischemic Attacks (TIA) Psychiatric History: Reports: Hx Anxiety, Hx Depression - Surgical History Surgery Procedure, Year, and Place: LEFT KNEE REPLACEMENT, RIGHT KNEE ARTHRSCOPY , RIGHT LEG VEIN STRIPPING, CARDIAC CATHETERIZATION Hx Anesthesia Reactions: No - Immunization History Date of Tetanus Vaccine: UTD Date of Influenza Vaccine: UTD Infectious Disease History: Yes Infectious Disease History: Denies: History Other Infectious Disease, Traveled Outside the [place] in Last 30 Days - Family History Known Family History: Positive: Cardiac Disease, Diabetes - Social History [facility] - Secondary to recent cellulitis Dx Alcohol Use: None Alcohol Amount: 1-2 drinks per year Hx Substance Use: No Substance Use Type: Reports: None Hx Tobacco Use: Yes Smoking Status (MU): Never Smoked Tobacco Have You Smoked in the Last Year: No Review of Systems Positive: Chest Pain Positive: Nausea. Negative: Abdominal Pain, Vomiting Positive: Myalgia - R calf tenderness Neurological: Other - Denies dizziness Positive: Headache All Other Systems Reviewed And Are Negative: Yes Physical Exam Triage Information Reviewed: Yes Vital Signs On Initial Exam: Initial Vitals Temp Pulse Resp BP Pulse Ox 98 F 71 19 142/81 99 09/23/16 18:06 09/23/16 18:06 09/23/16 18:06 09/23/16 18:06 09/23/16 18:06 Vital Signs Reviewed: Yes Appearance: Positive: Well-Appearing, No Pain Distress Skin: Positive: Warm, Skin Color Reflects Adequate Perfusion, Dry Head/Face: Positive: Normal Head/Face Inspection Eyes: Positive: EOMI, GARFIELD ENT: Positive: Normal ENT inspection Neck: Positive: Supple, Nontender Respiratory/Lung Sounds: Positive: Other - Poor air entry Cardiovascular: Positive: RRR, Pulses are Symmetrical in both Upper and Lower Extremities Abdomen Description: Positive: Nontender, Soft Bowel Sounds: Positive: Present Musculoskeletal: Positive: Strength/ROM Intact, Edema Left - Bilateral pedal edema, Edema Right - Bilateral pedal edema Neurological: Positive: Normal, Sensory/Motor Intact, Alert, Oriented to Person Place, Time - Wallace Coma Scale Coma Scale Total: 15 Diagnostics - Vital Signs Vital Signs Temp Pulse Resp BP Pulse Ox 09/23/16 18:06 98 F 71 19 142/81 99 - Laboratory Result Diagrams: 09/23/16 20:46 09/23/16 20:46 Lab Statement: Any lab studies that have been ordered have been reviewed, and results considered in the medical decision making process. - Radiology CXR Xray Interpretation: Positive (See Comments) - CARDIOMEGALY WITH PULMONARY INTERSTITIAL EDEMA Radiology Interpretation Completed By: Radiologist - Ultrasound No standard instances Ultrasound Interpretation: No Acute Changes - Venous Doppler Study: LIMITED STUDY. WITHIN THE LIMITATIONS OF THE STUDY, THERE IS NO RIGHT LOWER EXTREMITY DEEP VEIN THROMBOSIS Ultrasound Interpretation Completed By: Radiologist - EKG 1831 Cardiac Rate: NL - 78 bpm EKG Rhythm: Atrial Fibrillation EKG Interpretation: Q and P waves in the inferior leads Re-Evaluation - Re-Evaluation First Eval Re-Evaluation Time: 20:16 Change: Unchanged Comment: Pt says that he wants to hurt himself. Explained that a MHE will be done. Headache Course/Dx - Course Assessment/Plan: Pt is a 60 y/o M BIBA who presents to ED c/o constant, diffuse IQBAL since 1700, ranked 9/10. Additionally c/o acute on chronic CP, right calf tenderness and nausea. Pt reports he experiences CP "all the time," typically ranked 5/10, but today it is 7-8/10. Denies abdominal pain, vomiting and dizziness. Notes that he had a recent Dx of cellulitis in the RLE for which he has been on Abx for 14 days, without improvement of sx. PMHx NE, CVA and TIA. Last stress test was "a while" ago. PSHx cardiac catheterization 3-4 years ago. Doppler study of the RLE done on 09/06/16 with no acute findings. Upon reevaluation, pt reports that he would like to harm himself. CXR reveals "CARDIOMEGALY WITH PULMONARY INTERSTITIAL EDEMA" Doppler Study of the RLE reveals no acute findings. EKG reveals A Fib with Q and P waves in the inferior leads. Discussed care of pt with Dr. Hernandez, making him aware of the pt. Medically cleared for MHE at 2227. Dr. Hernandez medically cleared the patient. After MHE, it was been determined that the pt will be admitted to mental health with Dx os depressive disorder, NOS. Patient medications reviewed this visit. - Diagnoses Provider Diagnoses: Depressive disorder - Physician Notifications Discussed Care Of Patient With: Rogelio Hernandez Time Discussed With Above Provider: 21:43 Instructed by Provider To: Other - Making him aware of the pt and will have the pt evaluated in the ED. Discharge - Discharge Plan Condition: Good Disposition: ADMITTED TO [facility] Referrals: Bryn Chapman MD [Primary Care Provider] - The documentation as recorded by the Kinga collins Rebecca accurately reflects the service I personally performed and the decisions made by Emily chong Emmanuel.
[2016-09-24] MEDS ORDERED: Acetaminophen TAB* 325 MG PO PRN ×2 (05:00→05:07)
[2016-09-24] MEDS ORDERED: Al Hydrox/Mg Hydrox/Simet LIQ* 30 ML UDC PO PRN (05:00)
[2016-09-24] MEDS ORDERED: Nitroglycerin TAB 0.4 MG* 0.4 MG TAB SL PRN (05:04)
[2016-09-24 07:26] VITALS: BP 142/90
[2016-09-24] MEDS ORDERED: Furosemide TAB* 40 MG PO SCH (09:00)
[2016-09-24] MEDS ORDERED: hydrALAZINE TAB* 25 MG PO SCH (09:00)
[2016-09-24] MEDS ORDERED: Aspirin Low Dose CHEW TAB* 81 MG PO SCH (09:00)
[2016-09-24] MEDS ORDERED: Metoprolol Tartrate TAB* 100 MG TAB PO SCH (09:00)
[2016-09-24] MEDS ORDERED: amLODIPine TAB* 5 MG PO SCH (09:00)
[2016-09-24] MEDS ORDERED: Losartan TAB* 25 MG PO SCH (09:00)
[2016-09-24] MEDS ORDERED: Tamsulosin CAP* 0.4 MG PO SCH (09:00)
[2016-09-24] MEDS ORDERED: Linagliptin (NF) 5 MG TAB PO SCH (09:00)
[2016-09-24] MEDS ORDERED: Vitamin THERAPEUTIC TAB PO SCH (09:00)
[2016-09-24] MEDS ORDERED: Omeprazole CAP* 20 MG PO SCH (09:00)
[2016-09-24] MEDS ORDERED: CMC:Isosorbide Mononitrate (NF) 20 MG TAB PO SCH (09:00)
--- NOTE | 2016-09-24 15:17 | HP ---
AMENDED REPORT NOW INCLUDES COSIGNER - ESIGNED BEFORE ADJUSTMENT HISTORY AND PHYSICAL: DATE OF ADMISSION: 09/24/16. ATTENDING PSYCHIATRIST: Evan Georges MD * (DICTATED BY MAYNOR LATIF NP) JUSTIFICATION FOR ADMISSION: The patient was evaluated to have risk for self- harm after presenting to the emergency department with symptoms of severe headache and chest pain. He was worried these were related to a stroke. CHIEF COMPLAINT: Today, "I've had a lot going on in the last 2 months." HISTORY OF PRESENT ILLNESS: Aamir is a 60-year-old white male who resides at [facility]. He had been living with his partner Nidhi for the past 8 to 9 years. Two weeks ago she from him due to caregiver fatigue and he has since then is living at [facility]. Aamir reports stressors of the separation from [place] and worsening physical condition. He has had multiple CVAs, last one was approximately 2 to 3 months ago. He reports that he told staff in the emergency department that he is "tired." He tells me today that he is coming to terms with his worsening physical condition , he states, "I've lived a good life and am ready for when God is ready to take me." He denies active SI. He states that he has never been suicidal. He has never thought of hurting or killing himself. He states he does not need to be admitted to mental health unit. He states that he appreciates the care he receives at [facility]. He reports that the staff are helpful and take very good care of him. He states that he has made some friends while living there. He reports periods of feeling rundown and "blah." He asserts that this is due to physical condition and the loss of his relationship with Nidhi. He states that they still talk and she occasionally visits with him but he does not live with her any more. He asserts that he may have misunderstood about the questions being asked of him while in the emergency room and does not understand why he was not transported back to [facility] last night. He denies SI, he denies history of violence. He denies AH, VH or delusions, depersonalization. He denies rituals or phobias. He also denies change in vision or cognition or speech related to prior CVAs. He reports that he does have mild decreased use of his left arm. He reports that he is able to walk, the only barrier to this is pain and neuropathy from diabetes. PAST PSYCHIATRIC HISTORY: Aaimr denies he had been in counseling or inpatient psychiatric treatment previously. He is prescribed sertraline through his primary care provider Dr. Chapman. TRAUMA/ABUSE: Aamir denies history of abuse. He reports that multiple deaths in his life have affected him. These have all been since 2008. They include his previous partner of 9 years, Renetta, 2 brothers, a [id number]-igg, a nephew and a sister. FAMILY PSYCHIATRIC HISTORY: He denies. SOCIAL HISTORY: As stated above, Aamir has a significant other, Nidhi for the past 8 to 9 years. Prior to this, he had a significant other named Renetta. They were together 20 years before she in 2008. He reports he went into the [employer] at age 15 enlisted for 4 years. I defer to the psychosocial assessment for the rest of his social history. MEDICAL HISTORY: Multiple comorbid conditions. He received a hospitalist consultation while in the emergency department. PAST MEDICAL HISTORY: Paroxysmal atrial fib, type 2 diabetes mellitus, peripheral neuropathy, stage 3 chronic kidney disease, history of CAD, and status post IL, chronic diastolic heart failure, history of intracranial hemorrhage, hypertension, hyperlipidemia, obstructive sleep apnea, BPH, depressive disorder, morbid obesity with a BMI of 49.5. PAST SURGICAL HISTORY: Right knee arthroscopy in 2007, left knee arthroplasty in 2011, and vein stripping in 1972. HOME MEDICATIONS: 1. Acetaminophen 1000 mg p.o. q. 8 hours p.r.n. pain, fever. 2. Amlodipine 5 mg p.o. daily. 3. Flomax 0.4 mg p.o. q.h.s. 4. Gabapentin 200 mg p.o. b.i.d. 5. Hydralazine 25 mg p.o. t.i.d. 6. Isosorbide mononitrate 20 mg p.o. b.i.d. 7. Furosemide 40 mg p.o. q. a.m. 8. Lipitor 20 mg p.o. q. a.m. 9. Metoprolol tartrate 100 mg p.o. b.i.d. 10. Oxycodone 5 mg p.o. q. 4 hours p.r.n. pain. 11. Vitamin D 50,000 units p.o. daily. 12. Sertraline 100 mg p.o. b.i.d. 13. Tresiba insulin 70 units subcutaneous q.h.s. ALLERGIES: IODINE CONTRAST. REVIEW OF SYSTEMS: Negative at this time for chest pain, headache, nausea, abdominal pain, positive for myalgia, right calf tenderness. Skin is positive for right lower extremity ischemia, bilateral, and positive for fungal rash in lower abdominal folds. PHYSICAL EXAM: GENERAL: The patient is sitting in a wheelchair. He appears poorly groomed, dressed in a gown from the long term. He has long marroquin hair , long hanks, and is morbidly obese. The patient is alert and pleasant. VITAL SIGNS: Most recent vital signs, temperature 98.3, pulse 71, respirations 15, O2 sat of 98%, blood pressure 142/90. HEENT: Normocephalic, atraumatic. PERRL. EOM intact. RESPIRATORY: Lungs are clear to auscultation, no accessory muscle use. CARDIOVASCULAR: Regular rate and rhythm. S1 and S2 present. ABDOMEN: Large, soft, nontender, nondistended. Bowel sounds x4. EXTREMITIES: 1 to 2+ bilateral lower extremity edema. MUSCULOSKELETAL: Negative. NEUROLOGIC: The patient is alert and oriented x3. Cranial nerves II through XII are grossly intact. SKIN: Chronic skin changes from lymphedema to bilateral lower extremities. LABORATORY DATA: From the emergency department, sodium 136, potassium 4.1, chloride 103, CO2 of 27, BUN 19, creatinine 1.32, glucose 91. Troponin 0.01, BNP 183, D-dimer 332. WBC 8.5, hemoglobin 13.6, hematocrit 40.2, platelet count 248. Toxicology: Negative for salicylates, acetaminophen or serum alcohol. Urine drug screen was not performed nor is it indicated at this time. MENTAL STATUS EXAM: The patient is euthymic and pleasant upon approach. He is sitting in wheelchair in his room. He is poorly groomed and wearing a gown from the long term. He is cooperative and pleasant, talkative. He is forthcoming with information. He is alert and oriented x3. His concentration is good. His memory is 3/3. His mood is "happy go nisha." Affect is appropriate. Speech, soft and articulate. Thought process is logical and goal directed. Thought content is negative for SI, HI, , or urges for self-harm. There is no evidence of a thought disorder. His insight is good. His judgement is good. His fund of knowledge is excellent. DIAGNOSES: Hopkins I: Depressive disorder secondary to general medical conditions including multiple comorbid medical diagnoses. Hopkins II: Deferred. Hopkins III: As above, stated in medical history. Hopkins IV: Stressors related to loss of relationship and recent relocation to long term. Hopkins V: 50. ASSESSMENT: Mr. Corrales is 60-year-old male with significant medical history including cerebrovascular accident, morbid obesity, hypertension, hyperlipidemia , coronary artery disease, status post myocardial infarction, chronic kidney disease, atrial fibrillation. He presented to the emergency room yesterday due to complaints of severe headache and chest pain. He was concerned, he was having another stroke. While being evaluated in the emergency room he was screened positive for thoughts of self-harm. During mental health evaluation, he reported increased depression and passive wish. Hospitalist service was consulted and he was assessed to not be in need of medical admission. He was evaluated by mental health screening representative and admitted to the mental health unit under voluntary status due to risk for self- harm. Upon interview this morning , Mr. Corrales denies risk for self-harm and denies needing admission to the mental unit. He asserts that he is being cared for very well at [facility] and would prefer to return to the long term today. He is pleasant and cooperative. PLAN: 1. Continue outpatient medications as ordered. 2. Fingersticks before meals t.i.d. 3. Safety checks q. 15 minutes, monitor for mood and thought content. 4. Encourage presence in milieu and participation in groups and individual therapy. 5. Discharge planning: To contact [facility] about patient's return. MAYNOR LATIF NP [id number]/[facility] #: [id number] ORIGINAL ESIGN DATE/TIME: 09/24/161639 DEVIKA
[2016-09-24] MEDS ORDERED: Atorvastatin* 20 MG TAB PO SCH (21:00)
[2016-09-24] MEDS ORDERED: Insulin Detemir (NF) 100 UNIT/ML 10 ML VIAL SUBCUT SCH (21:00)
--- NOTE | 2016-09-25 10:16 | DS ---
DISCHARGE SUMMARY: DATE OF ADMISSION: 09/24/16 DATE OF DISCHARGE: 09/24/16 ATTENDING PHYSICIAN: Dr. Georges * (dictated by Jessica Latif NP) DISCHARGE DIAGNOSES: Norris I: Depressive disorder secondary to general medical conditions, including multiple comorbid medical diagnoses. Norris II: Deferred. Norris III: Paroxysmal atrial fibrillation, type 2 diabetes mellitus, peripheral neuropathy, stage 3 chronic kidney disease, history of coronary artery disease, status post myocardial infarction, s/p CVA, chronic diastolic heart failure, history of intracranial hemorrhage, hypertension, hyperlipidemia, obstructive sleep apnea, benign prostatic hyperplasia, morbid obesity with a BMI of 49.5. Norris IV: Moderate psychosocial stressors related to recent loss of relationship and relocation to alf. Norris V: 50. CONDITION AT THE TIME OF DISCHARGE: Unchanged and good. MENTAL STATUS EXAM: The patient is euthymic and pleasant upon approach, sitting in a wheelchair, and present in milieu. He is poorly groomed, wearing a gown from the alf. He is cooperative and pleasant and talkative. He is alert and oriented x3. Good eye contact. Concentration is good. Memory 3/3. His mood is "happy go nisha." Speech soft and articulate. Thought process is logical and goal directed. Thought content is negative for SI, HI, or urges for self harm. There is no evidence of thought disorders. Insight is good. His judgment is good. His fund of knowledge is excellent. ACTIVITY: Ambulation as tolerated. Tobacco cessation not indicated. There are no pending labs or diagnostic studies at the time of discharge. HOSPITAL COURSE: A. Reason for admission: Mr. Corrales is a 60-year-old male with significant medical history including CVAs, morbid obesity, and recently moved to a prison facility, [facility]. He presented to the emergency room yesterday due to complaints of severe headache and chest pain. He was concerned. He is having another stroke and, while being evaluated in the emergency room, he screened positive for thoughts of self harm. Hospitalist service was consulted. He was assessed not to be in need of medical admission. He was evaluated by the mental oven heater, admitted to the mental health unit under voluntary status due to risk for self harm. PSYCHIATRIC TREATMENT RENDERED: B. He was admitted voluntary to the mental health unit and placed on q. 15-minutes checks for safety. Outpatient medications were continued and nursing assessment completed. He was present in the milieu, and participated in meals and groups. He was safe on all checks. He denied risk for suicide or self harm, and requested to be returned to [facility]. He reports he is being very well cared for at [facility], and has a good rapport with both other residents and staffs. Social work contacted [facility] and verified that he is welcome to return and that they did not have any concerns about him returning today. Transportation was set up through [facility] for a wheelchair van to transport him back to [facility]. Due to the obligation to be treated in a less restrictive setting, decision was made by myself and supervising psychiatrist, Dr. Georges, to discharge the patient today. JESSICA LATIF NP [id number]/[facility] #: [id number] DEVIKA
== END 2016-09-24 13:10 | DRG 885 ==
LOC: ED 18:04 → BSU 09-24 04:00
PROVIDERS: ADMIT Psychiatry & Neurology Psychiatry; ATTEND Psychiatry & Neurology Psychiatry
DX: F32.89 Other specified depressive episodes (principal); E11.22 Type 2 diabetes mellitus with diabetic chronic kidney disease; I50.32 Chronic diastolic (congestive) heart failure; I13.0 Hypertensive heart and chronic kidney disease with heart failure and stage 1 through stage 4 chronic kidney disease, or unspecified chronic kidney disease; Z68.42 Body mass index [BMI] 45.0-49.9, adult; I48.0 Paroxysmal atrial fibrillation; E11.42 Type 2 diabetes mellitus with diabetic polyneuropathy; N18.3 Chronic kidney disease, stage 3 (moderate); I25.10 Atherosclerotic heart disease of native coronary artery without angina pectoris; I25.2 Old myocardial infarction; E78.5 Hyperlipidemia, unspecified; G47.33 Obstructive sleep apnea (adult) (pediatric); N40.0 Benign prostatic hyperplasia without lower urinary tract symptoms; E66.01 Morbid (severe) obesity due to excess calories; Z96.652 Presence of left artificial knee joint; Z82.49 Family history of ischemic heart disease and other diseases of the circulatory system; Z83.3 Family history of diabetes mellitus; R40.2412 Glasgow coma scale score 13-15, at arrival to emergency department; R07.9 Chest pain, unspecified; G89.29 Other chronic pain; Z66 Do not resuscitate; Z86.73 Personal history of transient ischemic attack (TIA), and cerebral infarction without residual deficits; Z91.041 Radiographic dye allergy status; Z86.711 Personal history of pulmonary embolism
CPT/HCPCS: 36415; 36600; 71010; 80048; 80053; 80320; 80329; 82803; 83605; 83735; 83880; 84484; 85025; 85379; 85610; 85730; 86703; 87040; 88305; 93005; A9270-GY; G0480; J2250